=== PATIENT | male | born 1980 | race African-American/Black ===

== ENCOUNTER 2016-12-31 08:07 | Inpatient (IN) | payer MEDICAID, OTHER ==
[2016-12-31] VITALS (19 sets, daily range): BP systolic 148–199; BP diastolic 74–137; PULSE 61–81; RESP 15–20; TEMP 97.4–98.1; O2SAT 92–100
[~2016-12-31] VITALS: Ht 177.8 cm; Wt 125.3 kg
[~2016-12-31 08:07] MED LIST: ATOR80TA41 PO; BAYE2KIT XX; CARV12.5 PO; CLOP75 PO; ECOT81TA2 PO; GLUCOMETER XX; GLUCOMTESTSTRIPS XX; ISOS30 PO; LISI20 PO; METF500 PO
[2016-12-31] MEDS ORDERED: CARV3.125 PO (08:23)
[2016-12-31] MEDS ORDERED: ROSU40 PO (08:23)
[2016-12-31] MEDS ORDERED: LISI-515 PO (08:23)
[2016-12-31] MEDS ORDERED: ASPIRIN 81 MG CHEW TAB PO ONE (08:30)
[2016-12-31] MEDS ORDERED: SODIUM CHLORIDE 0.9% FLUSH 10 ML FLUSH IVF PRN (08:30)
[2016-12-31 08:38] LABS: AUTOMATED NEUTROPHIL # 7.7 TH/MM3 (1.8-7.7); BASOPHIL % 0.4 % (0.0-2.0); EOSINOPHIL # 0.2 TH/MM3 (0-0.4); EOSINOPHIL % 1.6 % (0.0-4.0); HEMATOCRIT 45.1 % (39.0-51.0); HEMO FLAGS DIFF FINAL; LYMPH % 15.4 % (9.0-44.0); LYMPHOCYTE # 1.6 TH/MM3 (1.0-4.8); MEAN CELL VOLUME 78.3 FL (80.0-100.0); MEAN CORPUSCULAR HEMOGLOBIN 27.1 PG (27.0-34.0); MEAN CORPUSCULAR HGB CONC 34.6 % (32.0-36.0); NEUT % 75.6 % (16.0-70.0); PLATELET COUNT 288 TH/MM3 (150-450); RED BLOOD COUNT 5.76 MIL/MM3 (4.50-5.90); RED CELL DISTRIBUTION WIDTH 15.9 % (11.6-17.2); WHITE BLOOD COUNT 10.1 TH/MM3 (4.0-11.0)
--- NOTE | 2016-12-31 08:44 | PD ---
HPI Chief Complaint: Chest Pain Time Seen by Provider: 08:20 Travel History International Travel<30 days: No Contact w/Intl Traveler<30days: No Traveled to known affect area: No History of Present Illness HPI This is a 36-year-old gentleman with history of hypertension, diabetes mellitus , who presents here today with complaints of chest pain on and off 2 weeks. The patient reports left sided chest pain with no radiation. He reports the pain as both sharp and dull. He reports it as a 3-4 out of 10 on the pain scale. There is no shortness of breath. There is no nausea. There is no diaphoresis. The patient denies taking his Plavix as prescribed. He reports taking lisinopril and Cordarone only. He is not taking anything for his diabetes mellitus. COUNTS INCLUDE 234 BEDS AT THE [facility] Past Medical History Medical History: Denies Significant Hx Cancer: No Cardiovascular Problems: Yes (HTN) High Cholesterol: No Chest Pain: Yes Congestive Heart Failure: No Diminished Hearing: No Endocrine: No Genitourinary: No Hypertension: Yes Immune Disorder: No Musculoskeletal: No Neurologic: No Psychiatric: No Reproductive: No Respiratory: No Past Surgical History Surgical History: No Previous Surgery Other Surgery: No Social History Alcohol Use: No Tobacco Use: No Substance Use: No Allergies-Medications (Allergen,Severity, Reaction): Coded Allergies: No Known Allergies (Verified , 01/18/16) Reported Meds & Prescriptions Reported Meds & Active Scripts Active Reported Coreg (Carvedilol) 3.125 Mg Tab 3.125 Mg PO BID Crestor (Rosuvastatin Calcium) 40 Mg Tab 40 Mg PO DAILY Lisinopril 20 Mg Tab 20 Mg PO DAILY Review of Systems Except as stated in HPI: all other systems reviewed are Neg General / Constitutional: No: Fever, Chills Eyes: No: Blurred Vision, Drainage HENT: No: Headaches, Lightheadedness Cardiovascular: Positive: Chest Pain or Discomfort, No: Palpitations Respiratory: No: Cough, Shortness of Breath Gastrointestinal: No: Nausea, Vomiting Musculoskeletal: No: Weakness, Edema, Pain Neurologic: No: Weakness, Dizziness, Syncope, Headache Physical Exam Narrative GENERAL: Well-developed well-nourished male in no acute respiratory distress. SKIN: Focused skin assessment warm/dry. HEAD: Atraumatic. Normocephalic. EYES: No scleral icterus. No injection or drainage. ENT: No nasal bleeding or discharge. Mucous membranes pink and moist. NECK: Trachea midline. No JVD. Supple. CARDIOVASCULAR: Regular rate and rhythm. No murmur appreciated. RESPIRATORY: No accessory muscle use. Clear to auscultation. Breath sounds equal bilaterally. GASTROINTESTINAL: Abdomen soft, non-tender, nondistended. Hepatic and splenic margins not palpable. MUSCULOSKELETAL: No obvious deformities. No clubbing. No cyanosis. No edema. NEUROLOGICAL: Awake and alert. No obvious cranial nerve deficits. Motor grossly within normal limits. Normal speech. PSYCHIATRIC: Appropriate mood and affect; insight and judgment normal. Data Data Last Documented VS Vital Signs Date Time Temp Pulse Resp B/P Pulse Ox O2 Delivery O2 Flow Rate FiO2 12/31/16 10:09 81 148/74 12/31/16 08:22 97 Room Air 12/31/16 08:20 17 12/31/16 08:18 98.0 Orders Electrocardiogram (12/31/16 08:20) Basic Metabolic Panel (Bmp) (12/31/16 08:20) Ckmb (Isoenzyme) Profile (12/31/16 08:20) Complete Blood Count With Diff (12/31/16 08:20) Magnesium (Mg) (12/31/16 08:20) Prothrombin Time / Inr (Pt) (12/31/16 08:20) Act Partial Throm Time (Ptt) (12/31/16 08:20) Troponin I (12/31/16 08:20) Chest, Single Ap (12/31/16 08:20) Ecg Monitoring (12/31/16 08:20) Bilateral Bp Monitoring (12/31/16 08:20) Iv Access Insert/Monitor (12/31/16 08:20) Oximetry (12/31/16 08:20) Oxygen Administration (12/31/16 08:20) Aspirin Chew (Aspirin Chew) (12/31/16 08:30) Sodium Chloride 0.9% Flush (Ns Flush) (12/31/16 08:30) Hydralazine Inj (Apresoline Inj) (12/31/16 08:45) CKMB (12/31/16 08:25) CKMB% (12/31/16 08:25) Admit Order (Ed Use Only) (12/31/16 10:21) Labs Laboratory Tests Test 12/31/16 08:25 White Blood Count 10.1 TH/MM3 Red Blood Count 5.76 MIL/MM3 Hemoglobin 15.6 GM/DL Hematocrit 45.1 % Mean Corpuscular Volume 78.3 FL Mean Corpuscular Hemoglobin 27.1 PG Mean Corpuscular Hemoglobin 34.6 % Concent Red Cell Distribution Width 15.9 % Platelet Count 288 TH/MM3 Mean Platelet Volume 7.8 FL Neutrophils (%) (Auto) 75.6 % Lymphocytes (%) (Auto) 15.4 % Monocytes (%) (Auto) 7.0 % Eosinophils (%) (Auto) 1.6 % Basophils (%) (Auto) 0.4 % Neutrophils # (Auto) 7.7 TH/MM3 Lymphocytes # (Auto) 1.6 TH/MM3 Monocytes # (Auto) 0.7 TH/MM3 Eosinophils # (Auto) 0.2 TH/MM3 Basophils # (Auto) 0.0 TH/MM3 CBC Comment DIFF FINAL Differential Comment Prothrombin Time 13.0 SEC Prothromb Time International 1.2 RATIO Ratio Activated Partial 28.7 SEC Thromboplast Time Sodium Level 139 MEQ/L Potassium Level 4.3 MEQ/L Chloride Level 105 MEQ/L Carbon Dioxide Level 28.2 MEQ/L Anion Gap 6 MEQ/L Blood Urea Nitrogen 13 MG/DL Creatinine 1.41 MG/DL Estimat Glomerular Filtration 69 ML/MIN Rate Random Glucose 90 MG/DL Calcium Level 9.3 MG/DL Magnesium Level 2.2 MG/DL Total Creatine Kinase 188 U/L Creatine Kinase MB 2.0 NG/ML Troponin I 0.45 NG/ML MDM Medical Decision Making Medical Screen Exam Complete: Yes Emergency Medical Condition: Yes Differential Diagnosis ACS versus hypertensive urgency versus muscle skeletal chest pain. Narrative Course 36-year-old male history hypertension, reported diabetes mellitus, presents today with complaints of intermittent chest pain 2 weeks. Patient has LVH on initial EKG. Cardiac enzymes revealed a troponin of 0.45. Shortly thereafter arrival, the patient started experiencing chest pain and became diaphoretic. Repeat EKG showed what appeared to be questionable ST elevation in the anterior lateral leads. Patient was then given morphine and had nitroglycerin started. His pain resolved and repeat EKG showed no evidence of acute changes from the first EKG. He'll be admitted to the cardiac floor. The resident service as been notified of the patient have come down and see the patient. The patient's also discussed with staple side laster, Dr. Sigala. He recommended if the pain is resolved, he can have a formal inpatient cardiology consult. Diagnosis Primary Impression: Chest pain Additional Impressions: HTN (hypertension) Renal insufficiency Diabetes mellitus, type 2 Elevated troponin Admitting Information Admitting Physician Requests: Admit Alon Clifford MD Dec 31, 2016 08:44
[2016-12-31] MEDS ORDERED: hydrALAZINE HCL 20 MG/ML VIAL IV PUSH ONE (08:45)
[2016-12-31 08:47] LABS: APTT (PATIENT) 28.7 SEC (24.3-30.1); INTERNATIONAL NORMALIZED RATIO 1.2 RATIO
[2016-12-31 09:10] LABS: ANION GAP 6 MEQ/L (5-15); BICARBONATE 28.2 MEQ/L (21.0-32.0); BLOOD UREA NITROGEN 13 MG/DL (7-18); CHLORIDE 105 MEQ/L (98-107); GLOMERULAR FILTRATION RATE 69 ML/MIN (>89); MAGNESIUM 2.2 MG/DL (1.5-2.5); POTASSIUM 4.3 MEQ/L (3.5-5.1); SODIUM (NA) 139 MEQ/L (136-145)
--- NOTE | 2016-12-31 09:13 | RADRPT ---
EXAM DATE/TIME: 12/31/2016 08:29 [facility] COMPARISON: CHEST SINGLE AP, January 19, 2016, 0:10. INDICATIONS : Chest pain MEDICAL HISTORY : Hypertension. SURGICAL HISTORY : None. ENCOUNTER: Initial ACUITY: 2 weeks PAIN SCORE: 1/10 LOCATION: Bilateral chest FINDINGS: The lungs are clear. The heart is minimally enlarged. The pulmonary vascularity is normal. There is n o evidence for infiltrate or failure. The portion of the bony skeleton visualized is unremarkable. CONCLUSION: Compensated cardiomegaly otherwise negative . Cardiac silhouette is prominent in thi s 36 year-old suggesting cardiac disease. Rudy Mcguire MD FACR Board Certified Radiologist. This report was verified electronically.
[2016-12-31 09:15] LABS: CREATINE KINASE 188 U/L (39-308)
[2016-12-31] MEDS ORDERED: DOCUSATE SODIUM 50 MG/SENNA 8.6 MG TAB PO PRN (10:30)
[2016-12-31] MEDS ORDERED: NITROGLYCERIN 2% OINT 1 GM PACKET TOPICAL ONE (10:30)
[2016-12-31] MEDS ORDERED: SODIUM CHLORIDE 0.9% FLUSH 10 ML FLUSH IV FLUSH PRN (10:30)
[2016-12-31] MEDS ORDERED: NALOXONE HCL 0.4 MG/ML AMP IV PRN (10:30)
[2016-12-31] MEDS ORDERED: CLOPIDOGREL 75 MG TAB PO SCH (10:30)
[2016-12-31] MEDS ORDERED: ONDANSETRON HCL 4 MG/2 ML VIAL IVP PRN (10:30)
--- NOTE | 2016-12-31 10:38 | HHI.HP ---
[facility] Service Family Medicine Primary Care Physician No Primary Care Physician Admission Diagnosis Diagnoses: International Travel<30 Days: No Contact w/Intl Traveler<30days: No Known Affected Area: No History of Present Illness Mr. Adams is a 36 -year-old male with past medical history of hypertension, diabetes mellitus, and prior NSTEMI presenting with reported 2 weeks of intermittent L sided chest pain. He has had up to 10 episodes of chest pain over the last 2 weeks that are all similar in nature. The pain is at rest and with exertion. He describes it as a "pressure pain" similar to when he had his NSTEMI that radiates to his L shoulder. He endorses diaphoresis, but denies any N/V, headaches, blurry vision, diaphoresis, or "tearing" pain. Currently he states the pain is 10/10 in nature with pressure over the L side of his chest radiating to his left shoulder. He is diaphoretic with nausea and 1 episode of vomiting per staff. He reports that he has been compliant with his Coreg, lisinopril, statin, and aspirin. However he has not been compliant with his metformin, Plavix, and nitroglycerin as needed. Approximately one year ago he was evaluated with cardiac catheterization without stenting for an NSTEMI. Echocardiogram showed EF of 55 to 60% at that time. Otherwise he has no complaints and denies any fevers, shortness of breath, abdominal pain, or calf tenderness. (Zachary Lawrence MD R1) Review of Systems Constitutional: COMPLAINS OF: Chills, DENIES: Fever Eyes: DENIES: Blurred vision Ears, nose, mouth, throat: DENIES: Throat pain, Running Nose Respiratory: COMPLAINS OF: Shortness of breath, DENIES: Cough Cardiovascular: COMPLAINS OF: Chest pain, Palpitations, DENIES: Syncope, Dyspnea on Exertion, Lower Extremity Edema Gastrointestinal: DENIES: Abdominal pain, Diarrhea, Nausea, Vomiting Genitourinary: DENIES: Dysuria Musculoskeletal: DENIES: Joint pain Integumentary: DENIES: Rash Hematologic/lymphatic: DENIES: Lymphadenopathy Neurologic: DENIES: Headache Psychiatric: DENIES: Mood changes (Zachary Lawrence MD R1) Past Family Social History Past Medical History HTN Prior NSTEMI s/p Cath 2015 DM Renal Insufficiency HPLD Past Surgical History None reported (Zachary Lawrence MD R1) Allergies: Coded Allergies: No Known Allergies (Verified , 01/18/16) Family History Mother - from [place] at 46 yr Father - HPLD, still living Sister - healthy Social History [facility] [place] and works at [employer]. Lives with significant other in apartment. Smoke - Denies tobacco history Alcohol - Denies alcohol history Illicit - Denies illicit drug use (Zachary Lawrence MD R1) Physical Exam Vital Signs Vital Signs Date Time Temp Pulse Resp B/P Pulse Ox O2 Delivery O2 Flow Rate FiO2 12/31/16 10:09 81 148/74 12/31/16 09:11 69 173/94 186/85 12/31/16 09:08 65 184/104 12/31/16 08:22 97 Room Air 12/31/16 08:22 97 Room Air 12/31/16 08:20 70 17 96 Room Air 12/31/16 08:18 98.0 70 15 181/125 94 12/31/16 08:11 189/124 12/31/16 08:11 98.0 67 15 199/137 99 Physical Exam GENERAL: Obese 36-year-old male sitting on the side of the bed, diaphoretic, clutching his chest and pain. SKIN: Cool and diaphoretic. No rash or ecchymosis. HEENT: Atraumatic, normocephalic with EOMI. PERRLA. No scleral icterus. Oropharynx clear with no erythema or exudate. No rhinorrhea. No LAD, JVD, or carotid bruit appreciated. CARDIOVASCULAR: Tachycardic with regular rhythm. No MGR appreciated. RESPIRATORY: Clear to auscultation bilaterally. No CRW. No increased work of breathing. GASTROINTESTINAL: Abdomen soft, non-tender, nondistended with positive bowel sounds. No masses or hepatosplenomegaly appreciated. MUSCULOSKELETAL: Extremities without cyanosis or edema. 2+ pulses in all 4 extremities. No calf tenderness. NEUROLOGICAL: Awake alert and oriented 3. Motor and sensory grossly intact. Normal speech and judgment. Laboratory Laboratory Tests Test 12/31/16 08:25 White Blood Count 10.1 Red Blood Count 5.76 Hemoglobin 15.6 Hematocrit 45.1 Mean Corpuscular Volume 78.3 Mean Corpuscular Hemoglobin 27.1 Mean Corpuscular Hemoglobin 34.6 Concent Red Cell Distribution Width 15.9 Platelet Count 288 Mean Platelet Volume 7.8 Neutrophils (%) (Auto) 75.6 Lymphocytes (%) (Auto) 15.4 Monocytes (%) (Auto) 7.0 Eosinophils (%) (Auto) 1.6 Basophils (%) (Auto) 0.4 Neutrophils # (Auto) 7.7 Lymphocytes # (Auto) 1.6 Monocytes # (Auto) 0.7 Eosinophils # (Auto) 0.2 Basophils # (Auto) 0.0 CBC Comment DIFF FINAL Differential Comment Prothrombin Time 13.0 Prothromb Time International 1.2 Ratio Activated Partial 28.7 Thromboplast Time Sodium Level 139 Potassium Level 4.3 Chloride Level 105 Carbon Dioxide Level 28.2 Anion Gap 6 Blood Urea Nitrogen 13 Creatinine 1.41 Estimat Glomerular Filtration 69 Rate Random Glucose 90 Calcium Level 9.3 Magnesium Level 2.2 Total Creatine Kinase 188 Creatine Kinase MB 2.0 Troponin I 0.45 (Zachary Lawrence MD R1) Result Diagram: 12/31/16 0825 12/31/16 0825 Imaging Last 72 hours Impressions Chest X-Ray 12/31/16 0820 Signed Impressions: Service Date/Time: Saturday, December 31, 2016 08:29 - CONCLUSION: Compensated cardiomegaly otherwise negative . Cardiac silhouette is prominent in this 36 year-old suggesting cardiac disease. Rudy Mcguire MD FACR (Zachary Lawrence MD R1) Assessment and Plan Assessment and Plan Mr. Adams is a 36 -year-old male with past medical history of hypertension, diabetes mellitus, and prior NSTEMI presenting with reported 2 weeks of intermittent L sided chest pain likely secondary to therapy noncompliance. He will be admitted for further cardiac work up. Code Status FULL Discussed Condition With Dr. Clifford, ER physician Dr. Garduno (Zachary Lawrence MD R1) Attending Attestation Patient seen and examined. Case reviewed and discussed with the resident team. Agree with plan of care as discussed with me and documented in the resident note. (Bee Hernandez MD) Problem List: (1) Chest pain Status: Acute Plan: Patient with reported intermittent chest pain over the last 2 weeks with history of instability. Upon my evaluation patient had clinical change from initial evaluation by the ER physician as his pain had increased to 10/10 with N /V and diaphoresis. Repeat EKG was obtained that showed possible interval lateral lead changes. DDx includes ACS, GERD, PE, pneumonia, panic attack, myocarditis, costochondritis. CAD risk factors include obesity, FH of [place], HTN, HLD, DM and prior NSTEMI. -Previous ECHO on 01/20/16 showed an EF of 55-60% with mild hypokinesis of the distal inferior myocardium. Increased wall thickness of the left ventricle with moderate LVH. Mild pulmonic valve regurgitation. Systolic pressure of the pulmonary arteries 47 mmHg. -Previous EKG on 01/19/16 showed sinus tachycardia with inferior infarct of undetermined age, left ventricular hypertrophy, and lateral T-wave changes. -Repeat ECHO: Pending -Initial EKG: No acute change from prior EKG in 2016. -Repeat EKG on evaluation: Possible lateral lead changes concerning for ischemia. Cardiology notified per ED staff. -CXR: Compensated cardiomegaly otherwise negative. Cardiac silhouette prominent in this 36-year-old suggestion cardiac disease. -CBC: WNL -BMP: Creatinine 1.41 -LFT: Pending -Initial Trop 0.45. Trend Nick and EKGs x 2. -BNP: Pending -TSH: Pending -UDS:Pending -Telemetry -Pulse ox with nasal cannula PRN -STAT Cardiology consult placed, appreciate recommendations. Dr. Clifford in contact with Dr. Sigala at the time of my evaluation and is aware of the patient. Dr. Sigala requested repeat EKG and to be contacted with those results by Dr. Clifford. Medications: -ASA, Morphine 4mg, and Nitroglycerin give in ER x1. -Morphine 3mg Q2 hrs PRN chest pain only. -Continue Coreg 3.125mg BID -Continue Lisinopril 20mg QD -Continue Lipitor 80mg QHS -Supplemental O2. -Daily Plavix -Daily aspirin (2) HTN (hypertension) Status: Acute Plan: Patient with history of chronic HTN presenting with pressure of 199/137. Patient is being noncompliant on home medications. Medications: Received hydralazine 20 mg in ER 1 Continue home lisinopril 20 mg daily Vasotec 1.25 mg IV every 6 hours when necessary for a pressure greater than 170 /100 (3) Diabetes mellitus, type 2 Status: Acute Plan: Patient with reported diabetes mellitus. Currently not compliant with metformin. Sliding scale insulin per protocol Hold home metformin (4) Renal insufficiency Status: Chronic Plan: Patient with history of renal insufficiency. Per chart review baseline approximately 1.41. Patient has had noncompliance on medications. BMP: Creatinine 1.41 Continue to monitor (5) Hyperlipidemia Status: Chronic Plan: Patient with history of hyperlipidemia. Lipitor 80 mg daily at bedtime Lipid profile with morning labs (6) Nutrition, metabolism, and development symptoms Status: Acute Plan: Diet: Nothing by mouth for possible future procedure Fluids: Not dehydrated, currently tolerating by mouth fluids Electrolytes: WNL, continue to monitor Prophylaxis: Zofran prn for [place], Joan-Colace for constipation (7) No contraindication to deep vein thrombosis (DVT) prophylaxis Status: Acute Plan: Heparin 5000 units every 8 hours, depending on clinical course we will anticipate heparin drip for possible catheterization LORETTA/SCDs (Zachary Lawrence MD R1) Zachary Lawrence MD R1 Dec 31, 2016 10:38 Bee Hernandez MD Dec 31, 2016 14:38
[2016-12-31] MEDS ORDERED: HEPARIN SODIUM - SQ 10,000 UNITS/ML VIAL SQ SCH (11:00)
[2016-12-31] MEDS ORDERED: MORPHINE SULFATE 4 MG/ML INJ IV PUSH ONE (11:15)
[2016-12-31] MEDS ORDERED: DEXTROSE 50% IN WATER 50 ML VIAL(D50) IV PRN (11:45)
[2016-12-31] MEDS ORDERED: MORPHINE SULFATE 4 MG/ML INJ IV PUSH PRN (11:45)
[2016-12-31] MEDS ORDERED: GLUCAGON 1 MG/ML VIAL OTHER PRN (11:45)
--- NOTE | 2016-12-31 12:54 | ECHRPT ---
Indication: Chest pain, unspecified CONCLUSIONS Mildly dilated left ventricle. Mild concentric left ventricular hypertrophy. The left ventricular systolic function is severely reduced with an estimated ejection fraction in th e range of 20-25%. There is global left ventricular dysfunction. The left atrial size is mildly dilated. Trace mitral valve regurgitation. The aortic valve is not well visualized. The pulmonary valve is not well visualized. BP: 181 / 125 HR: 70 Rhythm: Sinus MEASUREMENTS (Male / Female) Normal Values Technical Quality:Good 2D ECHO LV Diastolic Diameter PLAX 6.3 cm 4.2 - 5.9 / 3.9 - 5.3 cm LV Systolic Diameter PLAX 5.6 cm IVS Diastolic Thickness 1.4 cm 0.6 - 1.0 / 0.6 - 0.9 cm LVPW Diastolic Thickness 1.1 cm 0.6 - 1.0 / 0.6 - 0.9 cm LV Relative Wall Thickness 0.4 RV Internal Dim ED PLAX 2.0 cm LA Systolic Diameter LX 4.0 cm 3.0 - 4.0 / 2.7 - 3.8 cm M-MODE IVS Diastolic Thickness MM 2.0 cm 0.6 - 1.0 / 0.6 - 0.9 cm Aortic Root Diameter MM 3.7 cm DOPPLER AV Peak Velocity 130.0 cm/s AV Peak Gradient 6.8 mmHg LVOT Peak Velocity 84.5 cm/s LVOT Peak Gradient 2.9 mmHg Mitral E Point Velocity 98.2 cm/s Mitral A Point Velocity 67.5 cm/s Mitral E to A Ratio 1.5 TR Peak Velocity 319.0 cm/s TR Peak Gradient 40.7 mmHg FINDINGS LEFT VENTRICLE Mildly dilated left ventricle. Mild concentric left ventricular hypertrophy. The left ventricular systolic function is severely reduced with an estimated ejection fraction in th e range of 20-25%. There is global left ventricular dysfunction. RIGHT VENTRICLE Normal right ventricular size and systolic function. LEFT ATRIUM The left atrial size is mildly dilated. RIGHT ATRIUM The right atrial size is normal. ATRIAL SEPTUM Normal atrial septal thickness without atrial level shunting by limited color doppler interrogation. AORTA The aortic root and proximal ascending aorta are normal in size on limited imaging. MITRAL VALVE Trace mitral valve regurgitation. AORTIC VALVE The aortic valve is not well visualized. No aortic valve stenosis or regurgitation. TRICUSPID VALVE Structurally normal tricuspid valve. No tricuspid valve stenosis or regurgitation. PULMONARY VALVE The pulmonary valve is not well visualized. VESSELS The inferior vena cava is normal in size. PERICARDIUM No pericardial effusion. Gordon Marmolejo MD (Electronically Signed) Final Date:31 December 2016 12:54
[2016-12-31] MEDS ORDERED: MORPHINE SULFATE 4 MG/ML INJ IV PRN (14:00)
[2016-12-31] MEDS ORDERED: HEPARIN-D5W INJ 250 ML IV SCH (14:00)
[2016-12-31 14:31] LABS: AMPHETAMINE, URINE NEG (NEG); BARBITURATES, URINE NEG (NEG); COCAINE, URINE NEG (NEG)
--- NOTE | 2016-12-31 14:31 | HHI.FPPN ---
Subjective Remarks Patient seen, examined and discussed with the medicine team. This is a 36-year-old male with cardiac history of an STEMI in 2016 he did have a catheter that had no stents. He now reports that he's had chest pain over the last 2 weeks intermittently. He continued to have this mostly at night and in the morning and this morning he again had the pain and decided to present to the emergency department. He recently started taking his Coreg again, as well as his lisinopril, aspirin and statin. He said he only took his Plavix maybe twice over the past many months because he said it made him feel weird or dizzy. He has not been taking his metformin. He apparently does not like to take pills. While in the emergency department this morning, he initially had chest pain 5 out of 10 but developed an episode of chest pain which was 10 out of 10 relieved with morphine and nitroglycerin. When I see him this afternoon, he says his pain now is 1-2 out of 10. He reports that this morning he took an [id number] diet pill because he thinks he needs to reduce his weight. Please see history and physical examination for this admission for additional past, family, social history and review of systems. Objective Vitals Vital Signs Date Time Temp Pulse Resp B/P Pulse Ox O2 Delivery O2 Flow Rate FiO2 12/31/16 14:00 71 12/31/16 13:00 63 12/31/16 12:30 68 12/31/16 12:30 97.7 62 20 149/89 99 12/31/16 11:53 98 21 12/31/16 11:37 71 18 165/102 100 Room Air 12/31/16 10:38 74 12/31/16 10:09 81 148/74 12/31/16 09:11 69 173/94 186/85 12/31/16 09:08 65 184/104 12/31/16 08:22 97 Room Air 12/31/16 08:22 97 Room Air 12/31/16 08:20 70 17 96 Room Air 12/31/16 08:18 98.0 70 15 181/125 94 12/31/16 08:11 189/124 12/31/16 08:11 98.0 67 15 199/137 99 Result Diagram: 12/31/1625 12/31/1625 Other Results Laboratory Tests Test 12/31/16 08:25 Mean Corpuscular Volume 78.3 FL Neutrophils (%) (Auto) 75.6 % Prothrombin Time 13.0 SEC Creatinine 1.41 MG/DL Estimat Glomerular Filtration 69 ML/MIN Rate Troponin I 0.45 NG/ML Imaging Last Impressions Chest X-Ray 12/31/16 0820 Signed Impressions: Service Date/Time: Saturday, December 31, 2016 08:29 - CONCLUSION: Compensated cardiomegaly otherwise negative . Cardiac silhouette is prominent in this 36 year-old suggesting cardiac disease. Rudy Mcguire MD FACR Objective Remarks O. CONSTITUTIONAL/GEN: normally nourished, in NAD. EYES: conjunctiva normal, PERRLA, EOMI. ENT: Mouth and pharynx normal. NECK: thyroid midline, carotids symmetrical. LUNGS: clear A-P, respiratory effort is normal. CARDIOVASCULAR: RR without murmur or gallop. No significant edema. GI/ABD: soft without masses, without organomegaly. NEURO: No focal deficits. SKIN: color normal, no rashes noted. HEME/LYMPH: no bruising, petechia or significant adenopathy MUSC: back is normal in appearance. Extremities are normal in appearance. PSYCH/MENTAL STATUS: Alert and oriented x 3. A/P Assessment and Plan Mr. Adams is a 36 -year-old male with past medical history of hypertension, diabetes mellitus, and prior NSTEMI presenting with reported 2 weeks of intermittent L sided chest pain likely secondary to therapy noncompliance. He will be admitted for further cardiac work up. Attending Attestation Patient seen and examined. Case reviewed and discussed with the resident team. Agree with plan of care as discussed with me and documented in the resident note. Problem List: (1) Chest pain Status: Acute Plan: Patient with reported intermittent chest pain over the last 2 weeks with history of instability. Upon my evaluation patient had clinical change from initial evaluation by the ER physician as his pain had increased to 10/10 with N /V and diaphoresis. Repeat EKG was obtained that showed possible interval lateral lead changes. DDx includes ACS, GERD, PE, pneumonia, panic attack, myocarditis, costochondritis. CAD risk factors include obesity, FH of [place], HTN, HLD, DM and prior NSTEMI. -Previous ECHO on 01/20/16 showed an EF of 55-60% with mild hypokinesis of the distal inferior myocardium. Increased wall thickness of the left ventricle with moderate LVH. Mild pulmonic valve regurgitation. Systolic pressure of the pulmonary arteries 47 mmHg. -Previous EKG on 01/19/16 showed sinus tachycardia with inferior infarct of undetermined age, left ventricular hypertrophy, and lateral T-wave changes. -Repeat ECHO: Pending -Initial EKG: No acute change from prior EKG in 2016. -Repeat EKG on evaluation: Possible lateral lead changes concerning for ischemia. Cardiology notified per ED staff. -CXR: Compensated cardiomegaly otherwise negative. Cardiac silhouette prominent in this 36-year-old suggestion cardiac disease. -CBC: WNL -BMP: Creatinine 1.41 -LFT: Pending -Initial Trop 0.45. Trend Nick and EKGs x 2. -BNP: Pending -TSH: Pending -UDS:Pending -Telemetry -Pulse ox with nasal cannula PRN -STAT Cardiology consult placed, appreciate recommendations. Dr. Clifford in contact with Dr. Sigala at the time of my evaluation and is aware of the patient. Dr. Sigala requested repeat EKG and to be contacted with those results by Dr. Clifford. Medications: -ASA, Morphine 4mg, and Nitroglycerin give in ER x1. -Morphine 3mg Q2 hrs PRN chest pain only. -Continue Coreg 3.125mg BID -Continue Lisinopril 20mg QD -Continue Lipitor 80mg QHS -Supplemental O2. -Daily Plavix -Daily aspirin (2) HTN (hypertension) Status: Acute Plan: Patient with history of chronic HTN presenting with pressure of 199/137. Patient is being noncompliant on home medications. Medications: Received hydralazine 20 mg in ER 1 Continue home lisinopril 20 mg daily Vasotec 1.25 mg IV every 6 hours when necessary for a pressure greater than 170 /100 (3) Diabetes mellitus, type 2 Status: Acute Plan: Patient with reported diabetes mellitus. Currently not compliant with metformin. Sliding scale insulin per protocol Hold home metformin (4) Renal insufficiency Status: Chronic Plan: Patient with history of renal insufficiency. Per chart review baseline approximately 1.41. Patient has had noncompliance on medications. BMP: Creatinine 1.41 Continue to monitor (5) Hyperlipidemia Status: Chronic Plan: Patient with history of hyperlipidemia. Lipitor 80 mg daily at bedtime Lipid profile with morning labs (6) Nutrition, metabolism, and development symptoms Status: Acute Plan: Diet: Nothing by mouth for possible future procedure Fluids: Not dehydrated, currently tolerating by mouth fluids Electrolytes: WNL, continue to monitor Prophylaxis: Zofran prn for NV, Joan-Colace for constipation (7) No contraindication to deep vein thrombosis (DVT) prophylaxis Status: Acute Plan: Heparin 5000 units every 8 hours, depending on clinical course we will anticipate heparin drip for possible catheterization LORETTA/SCDs Bee Hernandez MD Dec 31, 2016 14:31
[2016-12-31] MEDS ORDERED: IOHEXOL 350 MG/ML 100 ML BTL (for Cath Lab) OTHER ONE (15:48)
[2016-12-31] MEDS ORDERED: VERAPAMIL HCL 5 MG/2 ML VIAL ONE (15:54)
[2016-12-31] MEDS: HEPARIN-NS/PF INJ 500 ML ONE ×2 (15:54→16:05)
[2016-12-31] MEDS: HEPARIN SODIUM - IV 10,000 UNITS/10 ML VIAL ONE (15:55)
[2016-12-31] MEDS ORDERED: NITROGLYCERIN INJ 5 ML ONE (15:55)
[2016-12-31] MEDS: MIDAZOLAM HCL 2 MG/2 ML VIAL ONE ×4 (15:55→16:21)
[2016-12-31] MEDS: INSULIN ASPART SUPPLEMENTAL SCALE SQ SCH ×2 (16:00→21:00)
[2016-12-31] MEDS: LIDOCAINE HCL 1% PF 30 ML VIAL ONE (16:02)
--- NOTE | 2016-12-31 16:22 | MB ---
cc: VASHTI SOTO DATE OF CONSULTATION: 12/31/2016. REASON FOR CONSULTATION: Chest pain. HISTORY OF PRESENT ILLNESS: 36-year-old male with known past medical history of coronary artery disease with S-T elevation CA last year that was not intervened, hyperlipidemia, obesity , strong family history of premature CAD who presented to the emergency department with complaints of left-sided chest discomfort for the last two weeks. He reports the pain to be a pressure on exertion that radiates to the left shoulder associated with diaphoresis, however denies nausea, vomiting, headaches, diarrhea, fevers, chills, bleeding. The patient is not compliant with medications or medical visits. In the emergency department, his cardiac enzymes were elevated at 0.45. The first EKG unchanged from the previous and the second EKG there were dynamic S-T changes that resolved and the third EKG showed back to baseline. The patient was admitted to the [facility] for further management and evaluation. Echocardiogram done last year shows an ejection fraction of 60%. REVIEW OF SYSTEMS: Negative except for what is mentioned in history of present illness. PAST MEDICAL HISTORY: 1. Hypertension. 2. Coronary artery disease status post STEMI last year. 3. Diabetes. 4. Renal insufficiency. 5. Hyperlipidemia. 6. Obesity. PAST SURGICAL HISTORY: None. ALLERGIES: NO KNOWN DRUG ALLERGIES. FAMILY HISTORY: Mother had a myocardial infarction at 46. Father hyperlipidemia. SOCIAL HISTORY: Denies smoking, alcohol or illicit drug use. 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 HOME MEDICATIONS: 1. Coreg 3.125 milligrams p.o. twice a day. 2. Lisinopril 20 milligrams p.o. daily. 3. Crestor 40 milligrams p.o. daily. PHYSICAL EXAMINATION: VITAL SIGNS: Temperature 97, respiratory rate 20, heart rate 62, blood pressure 149/89, 02 saturation 99% on room air. GENERAL: He is awake, alert and oriented times three in no acute distress. HEAD, EYES, EARS, NOSE, THROAT/NECK: The patient has no jugular venous distention. No carotid bruits. HEART: Regular rate and rhythm. There are no murmurs, rubs or gallops. LUNGS: Clear to auscultation bilaterally. No wheezing. No rales. No rhonchi. ABDOMEN: The abdomen is soft, nontender and nondistended with positive bowel sounds. Obese. EXTREMITIES: There is no cyanosis or edema. Bounding pulses throughout. LABS: CBC: Hemoglobin 15, hematocrit of 45, platelet count 288,000. INR 1.2. Chemistries: Sodium 139, potassium 4.3, BUN 13, creatinine 1.41 which is his baseline. Troponin 0.45. BNP 97. EKGS: EKG normal sinus rhythm with inferior Q-waves, ___ and lateral T-wave inversions are old. Left ventricular hypertrophy. ASSESSMENT AND PLAN: 36-year-old male with known coronary artery disease presenting with NSTEMI ( PAPA 3, Killip Class I). He remains hemodynamically stable and chest pain-free with mildly elevated troponin. At this time, I agree with admission to to the coronary intensive care unit for optimization of medical therapy. Start heparin drip, aspirin, beta-blockers, ABIEL inhibitors, statins. Keep NPO for left heart cath / percutaneous coronary intervention. 2-D echocardiogram pending. The risks and benefits of left heart catheterization / percutaneous coronary intervention including but not limited to bleeding, infection, neurovascular trauma, acute kidney injury, emergent bypass surgery, stroke and have been explained to the patient. The patient understands the risks and he is willing to proceed. RECOMMENDATIONS 1. 2-D echocardiogram. 2. Cardiac enzymes x3. 3. Start heparin drip. 4. Start aspirin. 5. Continue beta blockers and ABIEL inhibitors and statins. 6. Keep n.p.o. for left heart catheterization today 7. Continue telemetry monitoring. Thank you for the opportunity to take part in the care of this patient. Further management to be determined. MD IRVING Shrestha/JCC /2:17 PM /4:16 PM CAN
--- NOTE | 2016-12-31 16:52 | CATHPROC ---
T1 Visions HIS Report Study Information Study Number Scheduled Start Study Start [id number] 12/31/2016 Dec 31 2016 3:53PM Referring Institution Admit Source Facility Department 1 Emergency department [facility] - [employer] Driver Physician and Clinical Staff Initial Amor Cheek Slitter Scorer Cut Off Operator Mickey Perez,JORGE A Recorder Dennis Bwoen,RT(R) Scrub Nikita, Leslie,CHAIR UPHOLSTERER TECH2 Procedures Performed Procedure Location (Site) Vessel Name Coronary Angiograms LCA Left Coronary Coronary Angiograms RCA Right Coronary LV Gram-hand inj. LV LV Ventricle Wire insertion Radial (right) Radial Art. Equipment Time Biology Tutor Description Size Mfg Part Number Used/Scraped COPILOT VALVE, BLEEDBACK [id number] 16:30 [employer] Used CONTROL *[id number] TRANSDUCER, TRUWAVE [id number] 16:03 ROMERO [employer] * Used W/STOCKCOCK *[id number] 16:36 CARDIVA MEDICAL VASCADE, FR5 CLOSURE SYSTEM FR 5 Used *[id number]- INTRODUCER SET, 16:13 [employer]. FR 5 SC-NT-U-SST Used MICROPUNCTURE, STIFFENED *[id number] [id number] *[id number] [id number] *[id number] [id number] *[id number] 16:03 KVK TEAM [employer]ES PACK, CCL CUSTOM * Used *[id number] 16:03 [employer] SUPPORT, ARTERIAL ADULT [id number] Used BAND, RADIAL COMPRESSION TR [id number] 16:41 [employer] MEDICAL 29CM Used LARGE 29 *[id number] 16:03 IES WIRE, 3MMJ .035 180CM 180CM Used *[id number] 16:03 NAMIC MANIFOLD, 4 PORT * Used *[id number] 16:03 NYCOMED OMNIPAQUE, 350 MG, 150ML 150ML [id number] Used [id number] 16:03 LEIGH MEDICAL BLANKET,WARM AIR CCL * Used *[id number] 16:13 TERUMO MEDICAL SHEATH, FR5 TERUMO (10CM) FR 5 [id number] Used SHEATH, FR6 TRANSRADIAL 16:03 TERUMO MEDICAL FR 6 [id number] Used SLENDER 10CM WIRE, RUNTHROUGH NS FLOPPY [id number] 16:31 TERUMO MEDICAL 180CM Used .014 180CM *[id number] Equipment Model, Serial, Lot Number and Expiration Data Description Model Number Serial Number Lot Number Expiration Date INTRODUCER SET, [id number] 10-27-2019 MICROPUNCTURE, STIFFENED History: Allergies Allergy Reaction No Known Allergies History: Risk Factors Family History of Hypertension Dyslipidemia Previous OR Previous Heart Failure Premature CAD Yes No No No No Prior Valve Prior PCI Prior CABG Surgery No No No Cerebrovascular Peripheral Artery Chronic Lung On Dialysis Diabetes Diabetes Therapy Disease Disease Disease No No No No Yes None History: Stress Tests Stress or Imaging Studies Performed No History: Other Current Smoker No Labs Hgb (g/dl) Hct (%) WBC (l/cumm) Platelets (thousands) 12.00-18.00 37.00-55.00 4.80-10.80 140.00-450.00 15.6 45.1 10.1 288 Glucose (mg/dl) BUN (mg/dl) Creatinine (mg/dl) BUN:Creatinine (1:x) 60.00-110.00 8.00-20.00 0.10-9.00 10.00-20.00 90 13 1.4 9.3 Na (meq/l) K (meq/l) 138.00-146.00 3.80-5.10 139 4.3 Troponin I (ng/ml) CPK-MB (ng/ML) 0.40-2.30 0.00-7.00 0.45 Not Drawn Medication Medication Total Dose (Bolus/Oral) Medication Total Dosage/Unit 1% XYLOCAINE 25 mL FENTANYL 100 mcg VERSED 4 mg Medications (Bolus/Oral) Medication Time Given Dosage/Unit Administered By Reason VERSED 12/31/2016 4:05:32 PM 2 mg Mickey Perez Patient arrived on 2 mg VERSED given by Mickey Perez RN in Right Antecubital via Peripheral IV. FENTANYL 12/31/2016 4:05:49 PM 50 mcg Mickey Perez Patient arrived on 50 mcg FENTANYL given by Mickey Perez RN in Right Antecubital via Peripheral IV . 1% XYLOCAINE 12/31/2016 4:07:07 PM 5 mL Amor Pimentel Patient arrived on 5 mL 1% XYLOCAINE given by Amor Pimentel in Right Radial via Subcutaneous. 1% XYLOCAINE 12/31/2016 4:13:39 PM 20 mL Amor Pimentel 20 mL 1% XYLOCAINE given in lab by Amor Pimentel in Right Groin via Subcutaneous. VERSED 12/31/2016 4:21:09 PM 2 mg Mickey Perez 2 mg VERSED given in lab by Mickey Perez RN in Right Antecubital via Peripheral IV. FENTANYL 12/31/2016 4:21:19 PM 25 mcg Mickey Perez 25 mcg FENTANYL given in lab by Mickey Perez RN in Right Antecubital via Peripheral IV. FENTANYL 12/31/2016 4:37:19 PM 25 mcg Mickey Perez 25 mcg FENTANYL given in lab by Mickey Perez RN via Peripheral IV. Medication (Drip) Medication Time Given Dosage/Unit Concentration/Unit Diluent (ml) Solution IV Solutions 12/31/2016 3:57:23 PM 0 mL (IV) 500 NaCl .9 Patient arrived on IV Solutions given by Amor Pimentel in Right Antecubital via Peripheral IV. Pu mp/Drip Flow = 20 ml/hr using NaCl .9. Reason: As per physicians verbal order. Final Case Assessment Cardiovascular HR Rhythm NIBP Chest Pain 78 sr 165/104 0 Edema Present Skin color Skin None Normal Warm Dry Circulatory - Right Pulses Dorsalis Pedis Femoral Radial 2 2 2 Scale (0,1,2,3,4,d) Scale (0,1,2,3,4,d) Neurological State Oriented to time-place- Alert Moves all extremities person Respiration - General Respiration Rate SpO2 (%) O2 (lpm) (B/min) 18 95 0 Chronological Log Time Study Chronological Log 15:52:53 Patient arrived via Bed. Positive Allens test performed by Dr. Sigala. 15:52:55 Patient Name, D.O.B, / Armband Verified By R.N. 15:52:56 Consent signed by the physician and the patient and verified by the [employer] staff. 15:52:57 Pre-op and post- op instructions given; patient acknowledges understanding of instructions. 15:56:11 Verbal Stimulation=2 Physical Stimulation=2 Airway=2 Respiration=2 TOTAL=8. (0=absent, 1=li mited, 2=present) 15:56:24 Presedation assessment performed by [employer] Driver RN. 15:56:26 Patient has been NPO for More than 6Hrs. 15:56:28 Skin Breakdown-none present per patient. 15:57:06 A # 20 IV was noted in the Antecubital (right). Grade = 0 Patient arrived on IV Solutions given by Amor Pimentel in Right Antecubital via Peripheral IV. Pump/Drip Flow = 20 15:57:23 ml/hr using NaCl .9. Reason: As per physicians verbal order. 15:57:42 History and physical on the chart or being dictated. Vitals capture started with the following parameters, Patient=Adult, Interval=15 min, Initial P xccrhfx=290 mmHg, 15:57:46 Deflation Rate=5 mmHg 15:58:04 Reference ECG taken 15:59:51 HR=75 bpm, OFPU=570/91 mmhg, SpO2=98.0 %, Resp=16 B/min, Knowles=2 16:02:59 Right groin prepped and right radial with 2% chlorhexidine, and with a 3 min. waiting time. 16:03:36 HR=73 bpm, GHOC=190/98 mmhg, SpO2=99.0 %, Resp=10 B/min, Knowles=2 Time Out. Correct patient, correct procedure,correct physician, ,power injector not loaded with contrast with surgical 16:04:44 team present. Time Out Concurred by MD, individual staff and REED WORKER in procedure. Not loaded at t his time. 16:05:28 Presedation re-assessment performed by [employer] Driver RN. 16:05:32 Patient arrived on 2 mg VERSED given by Mickey Perez, JORGE A in Right Antecubital via Periphe ral IV. 16:05:49 Patient arrived on 50 mcg FENTANYL given by Mickey Perez RN in Right Antecubital via Per ipheral IV. 16:05:56 Pressure channel 1 zeroed. 16:06:11 Case Start 16:07:01 Verbal Stimulation=2 Physical Stimulation=2 Airway=2 Respiration=2 TOTAL=8. (0=absent, 1=li mited, 2=present) 16:07:07 Patient arrived on 5 mL 1% XYLOCAINE given by Sigala-Jackson, Amor in Right Radial via Subcuta neous. 16:07:19 Access site was Radial Artery. right A SHEATH, FR6 TRANSRADIAL SLENDER 10CM FR 6 was advanced into the Radial (right) using the Perc utaneous 16:07:31 technique. 16:08:31 HR=79 bpm, LSRD=620/96 mmhg, SpO2=95.0 %, Resp=5 B/min, Knowles=2 A JR 4.0 INFINITI CATHETER FR 5 was advanced over a wire. OMNIPAQUE, 350 MG, 150ML 150ML was us ed for 16:09:48 injections. Recorded Pressure: Ao, HR=77, Condition=Condition 1 16:11:36 (Aorta) Ao 140/93/116 16:11:49 Wire removed 16:11:51 A WIRE, 3MMJ .035 180CM 180CM was inserted via Radial (right). 16:12:23 Wire removed 16:12:28 Catheter was removed 16:13:00 Radial approach aborted. Attempting right groin. 16:13:34 HR=73 bpm, MYAV=391/92 mmhg, SpO2=90.0 %, Resp=16 B/min, Knowles=2 16:13:39 20 mL 1% XYLOCAINE given in lab by Amor Pimentel in Right Groin via Subcutaneous. 16:15:40 Access site was Right Femoral Artery. 16:15:46 A SHEATH, FR5 TERUMO (10CM) FR 5 was advanced into the Fem Art (right) using the Percutaneo us technique. 16:16:24 An injection in the Fem Art (right) was made through the SHEATH, FR5 TERUMO (10CM) FR 5. A JR 4.0 INFINITI CATHETER FR 5 was advanced over a wire. OMNIPAQUE, 350 MG, 150ML 150ML was us ed for 16:16:43 injections. Recorded Pressure: LV, HR=88, Condition=Condition 1 16:18:39 (Left Ventricle) LV 159/9/24 16:18:56 The LV was manually injected with 10 cc's and visualized. OMNIPAQUE, 350 MG, 150ML 150ML us ed. Recorded Pressure: LV, Ao, HR=90, Condition=Condition 1 16:19:05 (Left Ventricle) LV 149/42/19, (Aorta) Ao 168/105/135 16:19:33 HR=73 bpm, UXHY=431/89 mmhg, SpO2=94.0 %, Resp=20 B/min, Knowles=2 16:21:09 2 mg VERSED given in lab by Mickey Perez, RN in Right Antecubital via Peripheral IV. 16:21:19 25 mcg FENTANYL given in lab by Mickey Perez, RN in Right Antecubital via Peripheral IV. 16:23:21 Catheter was removed 16:23:30 HR=73 bpm, JQTB=395/102 mmhg, SpO2=95.0 %, Resp=14 B/min, Knowles=2 A AR MOD INFINITI CATHETER FR 5 was advanced over a wire. OMNIPAQUE, 350 MG, 150ML 150ML was us ed for 16:23:42 injections. 16:25:00 The RCA was injected and visualized at various angles. OMNIPAQUE, 350 MG, 150ML 150ML used . 16:27:12 Catheter was removed A JL 3.5 INFINITI CATHETER FR 5 was advanced over a wire. OMNIPAQUE, 350 MG, 150ML 150ML was us ed for 16:27:14 injections. 16:28:19 Catheter was removed A JL 5.0 INFINITI CATHETER FR 5 was advanced over a wire. OMNIPAQUE, 350 MG, 150ML 150ML was us ed for 16:28:28 injections. 16:28:35 HR=88 bpm, GDWT=006/101 mmhg, SpO2=91.0 %, Resp=13 B/min, Knowles=2 16:28:46 The LCA was injected and visualized at various angles. OMNIPAQUE, 350 MG, 150ML 150ML used . 16:33:36 HR=78 bpm, ZELK=881/104 mmhg, SpO2=94.0 %, Resp=7 B/min, Knowles=2 16:35:08 Catheter was removed 16:36:10 Case End 16:36:40 VASCADE, FR5 CLOSURE SYSTEM FR 5 placement in the Fem Art (right) Assessment: Final Case, HR=78 BPM, Rhythm=sr, ARCE=469/104 mmhg, Chest Pain=0, Edema=None, [place] r=Normal, Skin = Warm, Dry 16:37:01 Right Pulses: Tommy Ped=2, Femoral=2, Radial=2 Neurological: State=Alert, Ox3, MAN Respiration: Resp=18 B/min, SpO2=95 %, O2=0 lpm 16:37:19 25 mcg FENTANYL given in lab by Mickey Perez, JORGE A via Peripheral IV. 16:38:37 HR=79 bpm, HEKM=112/107 mmhg, SpO2=95.0 %, Resp=17 B/min, Knowles=2 Radial Compression Device Used. 13 mLs of air placed in BAND, RADIAL COMPRESSION TR LARGE 29 29 CM. Affected 16:40:32 hand 95 % O2 saturation. 16:41:28 Case End 16:43:41 HR=74 bpm, TYPH=041/103 mmhg, SpO2=97.0 %, Resp=16 B/min, Knowles=2 16:48:35 HR=69 bpm, UPYE=296/100 mmhg, SpO2=96.0 %, Resp=11 B/min, Knowles=2 16:49:13 Vitals capture stopped. 16:49:24 Catheter(s) removed without difficulty 16:49:30 Sterile dressing applied to site 16:49:32 No case complications noted. 16:49:34 Cine recording checked. 16:49:37 Bedside Report will be given. 16:50:01 Implantable Device card placed in patient's chart. 16:50:04 Contrast Scanned 16:50:13 Patient moved to [facility] End Study - Contrast Media Used In Study Contrast Total Opened (mL) Total Used (mL) Total Wasted (mL) Omnipaque 100 100 0 End Study - Maximum Contrast Load Max Contrast Load (mL) 453.6 End Study - Radiation Exposure Fluoro Time (minutes) 10.9 End Study - Patient Disposition Complications Transferred To Telemetry Bed
[2016-12-31] MEDS ORDERED: ATROPINE SULFATE 1 MG/ML VIAL IV PRN (17:00)
[2016-12-31] MEDS ORDERED: ONDANSETRON HCL 4 MG/2 ML VIAL IV PRN (17:00)
[2016-12-31] MEDS: MISC INFORMATION XX ONE (17:00)
[2016-12-31] MEDS ORDERED: MISC INFORMATION XX ONE (17:15)
[2016-12-31] MEDS: TIROFIBAN INFUSION INJ 250 ML IV SCH (17:51)
[2016-12-31] MEDS: ENALAPRILAT 1.25 MG/ML VIAL IV PRN (18:41)
--- NOTE | 2016-12-31 19:02 | MA ---
cc: VASHTI SOTO DATE: 12/31/2016. PROCEDURE PERFORMED: 1. Left heart catheterization. 2. Selective right and left coronary angiography. 3. Left ventricular hemodynamics. INDICATIONS FOR THE PROCEDURE: [id number] myocardial infarction. DESCRIPTION OF THE PROCEDURE IN DETAIL: Consent signed. The patient was brought into the [facility] in a fasting state. The right groin was prepped and draped in sterile fashion. Using 1% lidocaine for local anesthesia and a micropuncture kit, a 5-Romanian sheath was inserted into the right common femoral artery and a right common femoral artery angiography was performed to confirm position of the sheath. Then selective right and left coronary angiography was performed with an AR-1 and a JL-5 diagnostic catheters. Angiography was taken in multiple views. All catheters were exchanged over a wire. Then the JR diagnostic catheter was introduced to the ventricle over a wire. This was followed by pressure recordings and pullback. The patient tolerated the procedure well without complications. Estimated blood loss was less than 30 mL. Total contrast used was 40 mL. The right groin access site was closed with a Vascade closure device. RESULTS: LEFT VENTRICLE: Left ventricular pressure was 149/42 with an left ventricular end diastolic pressure of 19. The aortic pressure was 168/105 with a mean of 135. There was no gradient upon pullback from the left ventricle to aorta. ANGIOGRAPHY: 1. Right coronary artery: The right coronary artery is diffusely diseased, tortuous and dominant vessel giving off the PDA. The right coronary artery and has a long diffuse mid segment of focal lesions with the tightest lesion being one of 80%. Subsequently the PDA has an ostial lesion of 90% and the posterior bilateral branches are patent with PAPA III flow; however, diffusely diseased as well. 2. The left main: The left main is short and patent with nonobstructive coronary artery disease. 3. The left anterior descending: The left anterior descending is a transapical vessel. It has minimal luminal irregularities throughout. It has a significant mid 99% lesion with PAPA II flow. The left anterior descending also has a 40% lesion distally. It has several diagonal branches, however these are small and also diffusely diseased. D. The left circumflex: The left circumflex artery is also diffusely diseased. It has a 40% lesion proximally and also 80% distally is giving off two obtuse marginal branches which are also diffusely diseased. CONCLUSIONS: 1. Severe three-vessel coronary artery disease. 2. Left ventricular systolic dysfunction. 3. Diastolic dysfunction. RECOMMENDATIONS: Patient case discussed with CT surgery (Dr. Granado) for CABG vs High Risk PCI. He will be transferred to the CVICU, cont Heparin drip, Aspirin, Beta Blockers and statins. ACEi on hold due to CKD. Start Aggrastat. Patient remains chest pain-free and no signs of shock or HF (Killip I). MD IRVING Shrestha/ODIN /4:54 PM /6:56 PM CAN
[2016-12-31] MEDS ORDERED: RESP: ALBUTEROL 2.5 MG/IPRATROPIUM 0.5 MG NEB (PRN) NEB (19:30)
[2016-12-31] MEDS ORDERED: HEPARIN SODIUM - IV 10,000 UNITS/10 ML VIAL IV PRN ×2 (20:00)
[2016-12-31] MEDS: CARVEDILOL 3.125 MG TAB PO SCH (20:13)
[2016-12-31] MEDS ORDERED: LABETALOL HCL 100 MG/20 ML VIAL IV ONE (21:45)
[2016-12-31] MEDS: SODIUM CHLORIDE 0.9% FLUSH 10 ML FLUSH IV FLUSH SCH (22:11)
[2016-12-31 22:12] LABS: APTT (PATIENT) 29.1 SEC (24.3-30.1)
[2016-12-31 22:26] LABS: INDIRECT BILIRUBIN 0.5 MG/DL (0.0-0.8); TOTAL BILIRUBIN ADULT 0.6 MG/DL (0.2-1.0)
[2017-01-01] VITALS (11 sets, daily range): BP systolic 148–168; BP diastolic 70–103; PULSE 64–75; RESP 16–20; TEMP 97.8–98.5; O2SAT 94–99
[2017-01-01 02:23] LABS: BASOPHIL % 0.3 % (0.0-2.0); EOSINOPHIL # 0.1 TH/MM3 (0-0.4); EOSINOPHIL % 1.5 % (0.0-4.0); HEMO FLAGS DIFF FINAL; LYMPH % 24.3 % (9.0-44.0); LYMPHOCYTE # 2.3 TH/MM3 (1.0-4.8); MEAN CELL VOLUME 78.6 FL (80.0-100.0); MEAN CORPUSCULAR HEMOGLOBIN 26.8 PG (27.0-34.0); MEAN CORPUSCULAR HGB CONC 34.1 % (32.0-36.0); MONO % 8.9 % (0.0-8.0); PLATELET COUNT 272 TH/MM3 (150-450); RED BLOOD COUNT 5.34 MIL/MM3 (4.50-5.90); RED CELL DISTRIBUTION WIDTH 15.8 % (11.6-17.2); WHITE BLOOD COUNT 9.3 TH/MM3 (4.0-11.0)
[2017-01-01 02:36] LABS: ANION GAP 9 MEQ/L (5-15); BICARBONATE 27.3 MEQ/L (21.0-32.0); BLOOD UREA NITROGEN 13 MG/DL (7-18); CHLORIDE 106 MEQ/L (98-107); GLOMERULAR FILTRATION RATE 81 ML/MIN (>89); POTASSIUM 3.9 MEQ/L (3.5-5.1); SODIUM (NA) 142 MEQ/L (136-145)
[2017-01-01 02:40] LABS: CREATINE KINASE 265 U/L (39-308); HDL CHOLESTEROL 33.7 MG/DL (40.0-60.0); LDL CHOLESTEROL 136 MG/DL (0-99)
[2017-01-01 04:04] LABS: CKMB 14.7 NG/ML (0.5-3.6)
[2017-01-01] MEDS: TIROFIBAN INFUSION INJ 250 ML IV SCH (05:14)
[2017-01-01] MEDS: CARVEDILOL 3.125 MG TAB PO SCH ×2 (08:39→21:11)
[2017-01-01] MEDS: ATORVASTATIN 80 MG TAB PO SCH (08:39)
[2017-01-01] MEDS: SODIUM CHLORIDE 0.9% FLUSH 10 ML FLUSH IV FLUSH SCH ×2 (08:39→21:00)
[2017-01-01] MEDS: LISINOPRIL 20 MG TAB PO SCH (08:39)
[2017-01-01] MEDS: INSULIN ASPART SUPPLEMENTAL SCALE SQ SCH ×4 (08:41→21:00)
--- NOTE | 2017-01-01 08:45 | PD.CARD.PN ---
Subjective Subjective Remarks No overnight events Chest pain free No complaints Objective Medications Current Medications Medications (Trade) Dose Ordered Sig/Elly Route Start Time Stop Time Status Last Admin (Coreg) 3.125 mg BID PO 12/31/16 21:00 12/31/16 20:13 (Prinivil) 20 mg DAILY PO 01/01/17 09:00 (Lipitor) 80 mg DAILY PO 01/01/17 09:00 (NS Flush) 2 ml UNSCH PRN IV FLUSH 12/31/16 10:30 (NS Flush) 2 ml BID IV FLUSH 12/31/16 21:00 12/31/16 22:11 (Zofran Inj) 4 mg Q6H PRN IVP 12/31/16 10:30 12/31/16 10:58 (Narcan Inj) 0.4 mg UNSCH PRN IV 12/31/16 10:30 (Joan-Colace) 1 tab BID PRN PO 12/31/16 10:30 (Vasotec Inj) 1.25 mg Q6H PRN IV 12/31/16 10:30 12/31/16 18:41 (Aspirin Chew) 81 mg DAILY CHEW 01/01/17 09:00 (D50w (Vial) Inj) 50 ml UNSCH PRN IV 12/31/16 11:45 (Glucagon Inj) 1 mg UNSCH PRN OTHER 12/31/16 11:45 (Nitrostat Sl) 0.4 mg Q5M PRN SL 12/31/16 14:00 (Morphine Inj) 2 mg Q30M PRN IV 12/31/16 14:00 (Heparin Inj) 5,000 units UNSCH PRN IV 12/31/16 20:00 Heparin Sodium (Porcine) 2500 units 2,500 units UNSCH PRN IV 12/31/16 20:00 (Heparin-D5W Inj) 250 ml @ 0 mls/hr TITRATE IV 12/31/16 14:00 12/31/16 15:05 (Atropine Inj) 0.5 mg UNSCH PRN IV 12/31/16 17:00 Ondansetron HCl 4 mg 4 mg Q4H PRN IV 12/31/16 17:00 (Aggrastat Infusion Inj) 250 ml @ 22.86 mls/ hr [id number] IV 12/31/16 17:08 01/01/17 11:07 01/01/17 05:14 Vital Signs / I&O Vital Signs Date Time Temp Pulse Resp B/P Pulse Ox O2 Delivery O2 Flow Rate FiO2 01/01/17 07:42 99 Nasal Cannula 2.00 01/01/17 07:42 97.8 75 16 159/94 99 01/01/17 07:34 98 Nasal Cannula 2.00 01/01/17 07:00 75 01/01/17 04:00 98.5 73 18 152/88 95 01/01/17 04:00 73 01/01/17 00:00 65 01/01/17 00:00 98.3 65 18 148/70 96 12/31/16 21:25 95 Nasal Cannula 2.00 12/31/16 20:00 98.1 72 18 175/101 92 12/31/16 19:10 68 12/31/16 18:51 92 Nasal Cannula 2.00 12/31/16 18:14 63 12/31/16 17:14 97.4 68 19 178/94 93 12/31/16 17:14 71 12/31/16 15:35 98.0 62 20 157/88 99 12/31/16 15:00 69 12/31/16 14:00 71 12/31/16 13:00 63 12/31/16 12:30 68 12/31/16 12:30 97.7 62 20 149/89 99 12/31/16 11:53 98 21 12/31/16 11:37 71 18 165/102 100 Room Air 12/31/16 10:38 74 12/31/16 10:09 81 148/74 12/31/16 09:11 69 173/94 186/85 12/31/16 09:08 65 184/104 I/O 12/31/16 12/31/16 12/31/16 01/01/17 01/01/17 01/01/17 07:00 15:00 23:00 07:00 15:00 23:00 Intake Total 100 ml 480 ml Output Total 0 ml 800 ml Balance 100 ml -320 ml Intake Oral 0 ml 240 ml IV Total 100 ml 240 ml Output Urine Total 0 ml 800 ml # Bowel Movements 0 Physical Exam GENERAL: Well-nourished, well-developed patient. SKIN: Warm and dry. HEAD: Normocephalic. EYES: No scleral icterus. No injection or drainage. NECK: Supple, trachea midline. No JVD or lymphadenopathy. CARDIOVASCULAR: Regular rate and rhythm without murmurs, gallops, or rubs. RESPIRATORY: Breath sounds equal bilaterally. No accessory muscle use. GASTROINTESTINAL: Abdomen soft, non-tender, nondistended. EXTREMITIES: No cyanosis, or edema. NEUROLOGICAL: Awake, alert, and oriented x 3. Non-focal. Laboratory Laboratory Tests Test 12/31/16 12/31/16 01/01/17 13:55 21:40 02:06 Urine Opiates Screen NEG Urine Barbiturates Screen NEG Urine Amphetamines Screen NEG Urine Benzodiazepines Screen NEG Urine Cocaine Screen NEG Urine Cannabinoids Screen NEG Activated Partial 29.1 SEC Thromboplast Time Total Bilirubin 0.6 MG/DL Direct Bilirubin 0.1 MG/DL Indirect Bilirubin 0.5 MG/DL Aspartate Amino Transf 40 U/L (AST/SGOT) Alanine Aminotransferase 30 U/L (ALT/SGPT) Alkaline Phosphatase 68 U/L Total Creatine Kinase 263 U/L 265 U/L Troponin I 5.07 NG/ML 5.78 NG/ML Total Protein 7.9 GM/DL Albumin 3.6 GM/DL Thyroid Stimulating Hormone 1.780 uIU/ML 3rd Gen White Blood Count 9.3 TH/MM3 Red Blood Count 5.34 MIL/MM3 Hemoglobin 14.3 GM/DL Hematocrit 42.0 % Mean Corpuscular Volume 78.6 FL Mean Corpuscular Hemoglobin 26.8 PG Mean Corpuscular Hemoglobin 34.1 % Concent Red Cell Distribution Width 15.8 % Platelet Count 272 TH/MM3 Mean Platelet Volume 7.9 FL Neutrophils (%) (Auto) 65.0 % Lymphocytes (%) (Auto) 24.3 % Monocytes (%) (Auto) 8.9 % Eosinophils (%) (Auto) 1.5 % Basophils (%) (Auto) 0.3 % Neutrophils # (Auto) 6.0 TH/MM3 Lymphocytes # (Auto) 2.3 TH/MM3 Monocytes # (Auto) 0.8 TH/MM3 Eosinophils # (Auto) 0.1 TH/MM3 Basophils # (Auto) 0.0 TH/MM3 CBC Comment DIFF FINAL Differential Comment Sodium Level 142 MEQ/L Potassium Level 3.9 MEQ/L Chloride Level 106 MEQ/L Carbon Dioxide Level 27.3 MEQ/L Anion Gap 9 MEQ/L Blood Urea Nitrogen 13 MG/DL Creatinine 1.22 MG/DL Estimat Glomerular Filtration 81 ML/MIN Rate Random Glucose 76 MG/DL Calcium Level 8.9 MG/DL Creatine Kinase MB 14.7 NG/ML Triglycerides Level 78 MG/DL Cholesterol Level 185 MG/DL LDL Cholesterol 136 MG/DL HDL Cholesterol 33.7 MG/DL Cholesterol/HDL Ratio 5.48 RATIO Lipase 212 U/L Imaging Last Impressions Chest X-Ray 12/31/16 0820 Signed Impressions: Service Date/Time: Saturday, December 31, 2016 08:29 - CONCLUSION: Compensated cardiomegaly otherwise negative . Cardiac silhouette is prominent in this 36 year-old suggesting cardiac disease. Rudy Mcguire MD FACR Assessment and Plan Problem List: (1) Non-ST elevation AR (NSTEMI) Assessment and Plan: 36 y/o M with known CAD admitted with NSTEMI, found to have 3 vessel CAD on LHC and severely reduced LV function on ECHO. He remains hemodynamically stable, chest pain free. Case discussed with CT surgery for 3 Vessel CABG vs High Risk PCI tomorrow. Recommendations: 1. NPO after midnight 2. D/C Aggrastat 4 hrs before surgery 3. Cont ASA, BB, ACEi, Heparin drip and Statins 4. Low threshold to intervening sooner if he develops symptoms. Case discuss [facility] CT surgery, Nurse and Family (2) Morbid obesity with BMI of 40.0-44.9, adult (3) HTN (hypertension) (4) Diabetes mellitus, type 2 (5) Hyperlipidemia (6) Renal insufficiency Amor Pimentel MD Jan 01, 2017 08:45
[2017-01-01] MEDS ORDERED: ASPIRIN 81 MG CHEW TAB CHEW SCH (09:00)
[2017-01-01] MEDS ORDERED: INFLUENZA VIRUS VACCINE (QUADRIVALENT) 0.5 ML SYR IM ONE (10:00)
[2017-01-01] MEDS ORDERED: CEFAZOLIN INJ 500 MG in SODIUM CHLORIDE 0.9% IRR BTL 500 ML IRRIGATION SCH (10:45)
[2017-01-01] MEDS ORDERED: PAPAVERINE INJ 60 MG, NITROGLYCERIN INJ 100 MCG, DILTIAZEM INJ 100 MG in SODIUM CHLORID... IRRIGATION SCH (10:45)
[2017-01-01] MEDS ORDERED: CHLORHEXIDINE GLUCONATE 4% SOLN 120 ML BTL TOPICAL SCH (10:45)
[2017-01-01] MEDS ORDERED: INSULIN REGULAR (IV INFUSION) 100 UNITS in SODIUM CHLORIDE 0.9% INJ 100 ML IV SCH (10:45)
[2017-01-01] MEDS ORDERED: SODIUM CHLORIDE 0.9% FLUSH 10 ML FLUSH IV FLUSH PRN (10:45)
[2017-01-01] MEDS ORDERED: ceFAZolin 2 GM PREMIX 50 ML IV SCH (10:45)
[2017-01-01] MEDS ORDERED: METOPROLOL TARTRATE 25 MG TAB PO SCH (10:45)
[2017-01-01] MEDS: ENALAPRILAT 1.25 MG/ML VIAL IV PRN ×2 (11:30→23:30)
--- NOTE | 2017-01-01 11:45 | EKG ---
Date Performed: 12/31/2016 Time Performed: 08:20:10 PTAGE: 36 years EKG: Sinus rhythm POSSIBLE LEFT ATRIAL ENLARGEMENT LEFT VENTRICULAR HYPERTROPHY AND ST-T CHANGE INFERIOR MYOCARDIAL IN FARCTION Since previous tracing, no significant change noted ABNORMAL ECGPREVIOUS TRACING : 05.33 DOCTOR: Anurag Maya Interpretating Date/Time 01/02/2017 07:32:47
--- NOTE | 2017-01-01 11:49 | HHI.FPPN ---
Subjective Remarks Patient seen and examined this morning by medical team. No acute events overnight with vital signs stable. Patient's troponin increased to 5.78 overnight, however patient complained of no chest pain, light headedness, headaches, or vision changes. Medical team discussed with patient the critical results of his catheterization procedure and possibility of CABG with cardiothoracic surgery. All questions were answered and patient voiced verbal understanding. Currently he has no complaints and denies any fevers, chills, chest pain, shortness of breath, abdominal pain, NVD, or calf tenderness. ( Zachary Lawrence MD R1) Objective Vitals Vital Signs Date Time Temp Pulse Resp B/P Pulse Ox O2 Delivery O2 Flow Rate FiO2 01/01/17 07:42 99 Nasal Cannula 2.00 01/01/17 07:42 97.8 75 16 159/94 99 01/01/17 07:34 98 Nasal Cannula 2.00 01/01/17 07:00 75 01/01/17 04:00 98.5 73 18 152/88 95 01/01/17 04:00 73 01/01/17 00:00 65 01/01/17 00:00 98.3 65 18 148/70 96 12/31/16 21:25 95 Nasal Cannula 2.00 12/31/16 20:00 98.1 72 18 175/101 92 12/31/16 19:10 68 12/31/16 18:51 92 Nasal Cannula 2.00 12/31/16 18:14 63 12/31/16 17:14 97.4 68 19 178/94 93 12/31/16 17:14 71 12/31/16 15:35 98.0 62 20 157/88 99 12/31/16 15:00 69 12/31/16 14:00 71 12/31/16 13:00 63 12/31/16 12:30 68 12/31/16 12:30 97.7 62 20 149/89 99 12/31/16 11:53 98 21 12/31/16 11:37 71 18 165/102 100 Room Air I/O 12/31/16 12/31/16 12/31/16 01/01/17 01/01/17 01/01/17 06:59 14:59 22:59 06:59 14:59 22:59 Intake Total 100 ml 480 ml Output Total 0 ml 800 ml Balance 100 ml -320 ml Intake Oral 0 ml 240 ml IV Total 100 ml 240 ml Output Urine Total 0 ml 800 ml # Bowel Movements 0 (Zachary Lawrence MD R1) Result Diagram: 01/01/1720501/01/17205 Objective Remarks GENERAL: Well-nourished well-developed 36-year-old male lying in bed in no acute distress. SKIN: Warm and dry. No rash. HEENT: Atraumatic, normocephalic with EOMI. MMM. No LAD or JVD appreciated. No rhinorrhea. CARDIOVASCULAR: Regular rate and rhythm without obvious murmurs, gallops, or rubs. RESPIRATORY: Clear to auscultation bilaterally with no CRW. No increased work of breathing. GASTROINTESTINAL: Abdomen soft, non-tender, nondistended with positive bowel sounds. No masses appreciated. MUSCULOSKELETAL: No cyanosis or edema. Strength grossly WNL. NEURO/PSYCH: Afocal. Awake, alert, and oriented x3. Normal speech and interaction with examiners. (Zachary Lawrence MD R1) A/P Assessment and Plan Mr. Adams is a 36 -year-old male with past medical history of hypertension, diabetes mellitus, and prior NSTEMI presenting with reported 2 weeks of intermittent L sided chest pain likely secondary to therapy noncompliance. Cardiac catheterization showed critical stenosis of multiple vessels with recommendation of cardiothoracic surgery evaluation for possible CABG. Discharge Planning Pending evaluation and possible CABG procedure by cardiothoracic surgery. ( Zachary Lawrence MD R1) Attending Attestation Patient seen and examined. Case reviewed and discussed with the resident team. Agree with plan of care as discussed with me and documented in the resident note. (Bee Hernandez MD) Problem List: (1) Chest pain Status: Acute Plan: Patient with reported intermittent chest pain over the last 2 weeks with history of instability. Upon my evaluation patient had clinical change from initial evaluation by the ER physician as his pain had increased to 10/10 with N /V and diaphoresis. Repeat EKG was obtained that showed possible interval lateral lead changes. -Repeat ECHO: EF of 20-25% with global left ventricular dysfunction. Mildly dilated left ventricle and left atria. Mild left ventricular hypertrophy. -Initial EKG: No acute change from prior EKG in 2016. -Repeat EKG on evaluation: Possible lateral lead changes concerning for ischemia. Cardiology notified per ED staff. -CXR: Compensated cardiomegaly otherwise negative. Cardiac silhouette prominent in this 36-year-old suggestion cardiac disease. -CBC: WNL -BMP: Improved to 1.22 -LFT: AST 40 otherwise within normal limits -Initial Trop 0.45, 5.07, 5.78 -BNP: 97 -TSH: 1.78 -UDS: Within normal limits -Lipid panel: LDL 136, HDL 33, cholesterol 185, triglycerides 78 -Telemetry -Pulse ox with nasal cannula PRN -STAT Cardiology consult placed, appreciate recommendations. Dr. Clifford in contact with Dr. Sigala at the time of my evaluation and is aware of the patient. Dr. Sigala requested repeat EKG and to be contacted with those results by Dr. Clifford. Cardiac catheterization: Severe three-vessel coronary artery disease with left ventricular systolic dysfunction and diastolic dysfunction. Consult CT surgery for CABG evaluation, we will plan for CABG procedure tomorrow morning Hold ABIEL inhibitor due to CKD Start Aggrastat Medications: -ASA, Morphine 4mg, and Nitroglycerin give in ER x1. -Morphine 3mg Q2 hrs PRN chest pain only. -Continue Coreg 3.125mg BID -Hold Lisinopril 20mg QD -Continue Lipitor 80mg QHS -Supplemental O2. -Daily Plavix -Daily aspirin -Aggrastat (2) HTN (hypertension) Status: Acute Plan: Patient with history of chronic HTN presenting with pressure of 199/137. Patient is being noncompliant on home medications. Medications: Received hydralazine 20 mg in ER 1 Hold home lisinopril 20 mg daily Vasotec 1.25 mg IV every 6 hours when necessary for a pressure greater than 170 /100 Labetalol 20 mg IV given once overnight (3) Diabetes mellitus, type 2 Status: Acute Plan: Patient with reported diabetes mellitus. Currently not compliant with metformin. Sliding scale insulin per protocol Hold home metformin (4) Renal insufficiency Status: Chronic Plan: Patient with history of renal insufficiency. Per chart review baseline approximately 1.41. Patient has had noncompliance on medications. BMP: Creatinine 1.41 Continue to monitor (5) Hyperlipidemia Status: Chronic Plan: Patient with history of hyperlipidemia. Lipitor 80 mg daily at bedtime Lipid profile with morning labs (6) Nutrition, metabolism, and development symptoms Status: Acute Plan: Diet: Nothing by mouth for CABG procedure tomorrow morning Fluids: Not dehydrated, currently tolerating by mouth fluids Electrolytes: WNL, continue to monitor Prophylaxis: Zofran prn for NV, Joan-Colace for constipation (7) No contraindication to deep vein thrombosis (DVT) prophylaxis Status: Acute Plan: Heparin drip per protocol in preparation for CABG procedure LORETTA/SCDs (Zachary Lawrence MD R1) Zachary Lawrence MD R1 Jan 01, 2017 11:48 Bee Hernandez MD Jan 01, 2017 11:54
--- NOTE | 2017-01-01 11:57 | RADRPT ---
EXAM DATE/TIME: 01/01/2017 11:03 [facility] COMPARISON: No previous studies available for comparison. INDICATIONS : Pre-Op cardiac surgery. MEDICAL HISTORY : Hypertension. Chest pain. Palpitations. Dyspnea. Diabetes. SURGICAL HISTORY : Cardiac cath. ENCOUNTER: Initial ACUITY: 1 day PAIN SCORE: 1/10 LOCATION: Bilateral leg. TECHNIQUE: Venous ultrasound of the left and right leg was performed from the inguinal ligament to the proximal calf. Real-time, color Doppler and spectral tracing, compression and augmentation techniques were us ed. FINDINGS: RIGHT LEG: There is normal compressibility of the deep venous system from the inguinal region to the proximal ca lf. No echogenic clot is seen in the lumen of the common femoral, femoral, popliteal, and posterior tibial veins. There is a normal response of the venous system to proximal and distal augmentation an d respiration. LEFT LEG: There is normal compressibility of the deep venous system from the inguinal region to the proximal ca lf. No echogenic clot is seen in the lumen of the common femoral, femoral, popliteal, and posterior tibial veins. There is a normal response of the venous system to proximal and distal augmentation an d respiration. CONCLUSION: 1. No sonographic evidence for lower extremity DVT. Cesar Cam MD on January 01, 2017 at 11:54 Board Certified Radiologist. This report was verified electronically.
--- NOTE | 2017-01-01 12:27 | RADRPT ---
EXAM DATE/TIME: 01/01/2017 11:12 [facility] COMPARISON: No previous studies available for comparison. INDICATIONS : Pre-Op cardiac surgery. MEDICAL HISTORY : Hypertension. Chest pain. Palpitations. Dyspnea. Diabetes. SURGICAL HISTORY : Cardiac cath. ENCOUNTER: Initial ACUITY: 1 day PAIN SCORE: 2/10 LOCATION: Bilateral leg. GREATER SAPHENOUS VEIN THIGH: PROXIMAL: Right 3 mm Left 6 mm MID: Right 3 mm Left 4 mm DISTAL: Right 2 mm Left 3 mm CALF: PROXIMAL: Right 2 mm Left 2 mm MID: Right 3 mm Left 1 mm DISTAL: Right 2 mm Left 2 mm FINDINGS: The venous system of the lower extremities are patent by color Doppler imaging. Measurements of the leg veins (in mm) are listed above. CONCLUSION: Venous mapping as described above. Rudy Mcguire MD FACR on January 01, 2017 at 12:25 Board Certified Radiologist. This report was verified electronically.
--- NOTE | 2017-01-01 12:29 | RADRPT ---
EXAM DATE/TIME: 01/01/2017 10:51 [facility] COMPARISON: No previous studies available for comparison. INDICATIONS : Pre-Op cardiac surgery. MEDICAL HISTORY : Hypertension. Chest pain. Palpitations. Dyspnea. Diabetes. SURGICAL HISTORY : Cardiac cath. ENCOUNTER: Initial ACUITY: 1 day PAIN SCORE: 10 LOCATION: Bilateral neck PEAK SYSTOLIC VELOCITIES (cm/sec): ICA/CCA RATIO: Right: 1.1 Left: 1.3 ICA: Right: 77 Left: 127 CCA: Right: 72 Left: 97 ECA: Right: 77 Left: 70 VERTEBRAL: Right: 41 antegrade Left: 67 antegrade Elevated flow velocities and ICA/CCA ratios have been found to correlate with increased degrees of vessel stenosis, calculated as percentage of diameter relative to a normal segment of distal ICA/CCA FINDINGS: RIGHT CAROTID: There is no evidence for a hemodynamically significant carotid stenosis. Minimal int imal hyperplasia is present with scattered calcific plaque. LEFT CAROTID: There is no evidence for a hemodynamically significant carotid stenosis. Minimal inti mal hyperplasia is present with scattered calcific plaque. VERTEBRAL ARTERIES: Flow is antegrade in both vertebral arteries. MISCELLANEOUS: There are no ancillary masses or adenopathy. CONCLUSION: Negative examination for a hemodynamically significant carotid stenosis. Rudy Mcguire MD FACR Board Certified Radiologist. This report was verified electronically.
--- NOTE | 2017-01-01 13:46 | EKG ---
Date Performed: 12/31/2016 Time Performed: 10:39:21 PTAGE: 36 years EKG: Sinus rhythm POSSIBLE LEFT ATRIAL ENLARGEMENT POSSIBLE LEFT VENTRICULAR HYPERTROPHY INFERIOR MYOCARDIAL INFARCTIO N ABNORMAL ECG Left ventricular strain pattern not present in the lateral leads comapred to the prior tracing. PREVIOUS TRACING : 12/31/2016 08.20 DOCTOR: Anurag Maya Interpretating Date/Time 01/01/2017 13:44:16
--- NOTE | 2017-01-01 13:46 | EKG ---
Date Performed: 12/31/2016 Time Performed: 11:54:23 PTAGE: 36 years EKG: Sinus rhythm LEFT VENTRICULAR HYPERTROPHY AND ST-T CHANGE INFERIOR MYOCARDIAL INFARCTION ABNORMAL ECG Return of t he lateral ST-T wave changes compared to the prior tracing. PREVIOUS TRACING : 12/31/2016 11.53 DOCTOR: Anurag Maya Interpretating Date/Time 01/01/2017 13:44:46
[2017-01-01] MEDS: TIROFIBAN INFUSION 12.5 MG/NS 250 ML IV SCH ×2 (14:15→20:10)
[2017-01-01] MEDS ORDERED: TIROFIBAN BOLUS 5 MG/NS 100 ML IV ONE (14:15)
--- NOTE | 2017-01-01 16:30 | PD.CAR.PN ---
CVT Progress Note Subjective/Hospital Course: sts data discussed with pt RISK SCORES About the STS Risk Calculator Procedure: CAB Only Risk of Mortality: 0.841% Morbidity or Mortality: 18.922% Long Length of Stay: 5.324% Short Length of Stay: 44.813% Permanent Stroke: 0.646% Prolonged Ventilation: 14.065% DSW Infection: 0.92% Renal Failure: 4.04% Reoperation: 5.249% Objective: Vital Signs Date Time Temp Pulse Resp B/P Pulse Ox O2 Delivery O2 Flow Rate FiO2 01/01/17 15:20 98.0 65 18 159/96 96 01/01/17 15:20 96 Nasal Cannula 2.00 01/01/17 15:00 65 01/01/17 11:45 99 Nasal Cannula 2.00 01/01/17 11:45 98.4 65 16 164/103 99 01/01/17 11:00 66 01/01/17 07:42 99 Nasal Cannula 2.00 01/01/17 07:42 97.8 75 16 159/94 99 01/01/17 07:34 98 Nasal Cannula 2.00 01/01/17 07:00 75 01/01/17 04:00 98.5 73 18 152/88 95 01/01/17 04:00 73 01/01/17 00:00 65 01/01/17 00:00 98.3 65 18 148/70 96 12/31/16 21:25 95 Nasal Cannula 2.00 12/31/16 20:00 98.1 72 18 175/101 92 12/31/16 19:10 68 12/31/16 18:51 92 Nasal Cannula 2.00 12/31/16 18:14 63 12/31/16 17:14 97.4 68 19 178/94 93 12/31/16 17:14 71 Labs: Laboratory Tests Test 01/01/17 01/01/17 10:57 11:26 Blood Type O POSITIVE O POSITIVE Antibody Screen NEGATIVE Crossmatch Leukocyte-Reduced Red Blood Cells Blood Bank Comment Result Diagram: 01/01/176 01/01/17205 (1) Diabetes mellitus, type 2 (2) Hyperlipidemia (3) Renal insufficiency Nettie Parks Jan 01, 2017 16:30
[2017-01-01 16:33] LABS: HEMOGLOBIN A1a 0.8 %; HEMOGLOBIN A1b 0.6 %; HEMOGLOBIN Ao 54.9 %; HEMOGLOBIN F 0.7 %; HEMOGLOBIN LA1C 1.2 %; HEMOGLOBIN P3 2.3 %
[2017-01-01 17:42] LABS: BLOOD, URINE NEG (NEG); COMMENT (UR) CULT NOT INDICATED; CULTURE IF INDICATED CULT NOT INDICATED; GLUCOSE,URINE NEG (NEG); KETONE, URINE NEG (NEG); MUCUS URINE FEW /lpf (OCC); NITRITE,URINE NEG (NEG); PH, URINE 5.5 (5.0-8.5); URINE COLOR YELLOW (YELLW/STRAW)
--- NOTE | 2017-01-01 20:38 | MB ---
cc: MYRNA GRANADO DATE OF CONSULTATION 01/01/2017 DATE OF 1980 HISTORY OF THE PRESENT ILLNESS This is a 36-year-old male admitted with past medical history of coronary disease. Apparently underwent a cath a year ago but was treated medically. He had not followed up with his primary care physician. The only medication he was really taking was his lisinopril. Strong family history of premature coronary disease. He presented with left-sided chest discomfort for the last couple of weeks. Reported the pain to be pressure on exertion that radiated to his left shoulder, associated with some diaphoresis. No nausea, vomiting, headaches. His cardiac enzymes were elevated at 0.45. His EKG was unchanged from previous EKG. He was admitted with a [id number] IL. His echo last year showed an EF of 60%. His echo this year showed an EF of 20% to 25%. We were consulted to evaluate after he had underwent his cardiac cath which showed the RCA had a long diffuse mid segment lesion of 80%. Subsequently the PDA had an ostial lesion of 90%. The left main has some nonobstructive disease. The left anterior descending had a 99% mid lesion and 40% distally. The left circ had a 70% lesion proximally and 80% distally. Significant diastolic dysfunction. Recommendation is obviously for beta blockers. He is currently on Agrestat, aspirin. ABIEL is on hold secondary to his chronic kidney disease. There is currently no signs of shock or heart failure. PAST MEDICAL HISTORY Includes: 1. Hypertension. 2. Coronary disease post STEMI last year. 3. Diabetes mellitus. 4. Renal insufficiency. 5. Hyperlipidemia. 6. Obesity. PAST SURGICAL HISTORY No past surgical history. ALLERGIES NO KNOWN ALLERGIES. MEDICATIONS Home medications are: 1. Coreg. 2. Lisinopril. 3. Crestor, but he states that he has only been taking lisinopril. FAMILY HISTORY Mother had an IL at age 46. Father is alive and well with hyperlipidemia. SOCIAL HISTORY Denies smoking, illicit drugs or alcohol. 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 REVIEW OF SYSTEMS GENERAL: No night sweats, fever, heat and cold intolerance. SKIN: No psoriasis, itching or hives. HEENT: No blurred vision, hearing loss. RESPIRATORY: No cough, shortness of breath. CARDIOVASCULAR: As above in HPI. GASTROINTESTINAL: No diarrhea, vomiting. GENITOURINARY: No burning, frequency, urgency. CENTRAL NERVOUS SYSTEM: No history of TIA, CVA, seizure disorder. ENDOCRINE: He was told in the past that he was a borderline diabetic. PHYSICAL EXAMINATION VITAL SIGNS: On exam blood pressure 159/96, heart rate 65, temperature max 98, O2 sat 96% on 2 liters. GENERAL: Patient is awake, alert in no acute distress. HEENT: Head is normocephalic, atraumatic. Pupils equal and reactive. Oral mucosa pink, moist. NECK: Supple. No JVD. CARDIOVASCULAR: Heart sounds S1-S2, regular rate and rhythm. No rubs, murmurs, gallops. LUNGS: Clear to auscultation. No wheezes, rales or rhonchi. ABDOMEN: Soft, nontender. No masses or organomegaly. EXTREMITIES: No cyanosis, clubbing or edema. LABORATORY FINDINGS Shows hemoglobin is 14, hematocrit of 42, white cell count 9.3, platelet count 272. Chemistry, sodium 142, potassium 3.9, BUN of 13, creatinine 1.22. He came in with a creatinine 1.41. Troponin was elevated at 5.78. Cholesterol 185, LDL 136, HDL 33, lipase 212. TSH 1.7. INR 1.2. Urine drug screen negative. MRSA screen pending. IMAGING Carotid ultrasound unremarkable. Ultrasound of the lower extremities, no DVT. Vein mapping is adequate. IMPRESSION A 36-year-old male with history of coronary disease now status post non STEMI with elevated troponins. Echocardiogram showing ischemic disease with EF of 20-25%. Cardiac films have been reviewed by Dr. Myrna Granado. PLAN The plan will be for coronary artery bypass grafting times three to four. The patient is agreeable to proceed. In the meantime we will have to adequately maintain normalized blood pressure. Check hemoglobin A1c. He has got some chronic kidney disease. We will need to hold any kinase inhibitor unless his creatinine improves. Continue beta constanza, aspirin. He is also currently on Agrestat. Continue telemetry monitoring and we will follow accordingly. DICTATED BY: KEREN Dutton MD TAN Davis/GRECIA /4:38 PM /8:46 AM
[2017-01-01] MEDS ORDERED: SODIUM CHLORIDE 0.9% FLUSH 10 ML FLUSH IV FLUSH SCH (21:00)
[2017-01-02] VITALS (15 sets, daily range): BP systolic 143–180; BP diastolic 82–115; PULSE 55–89; RESP 16–20; TEMP 98–99.1; O2SAT 94–98
[2017-01-02] MEDS ORDERED: methylPREDNISolone SOD SUCC 125 MG/2 ML VIAL ONE (06:24)
[2017-01-02] MEDS ORDERED: ceFAZolin 2 GM PREMIX 50 ML ONE (06:24)
[2017-01-02] MEDS ORDERED: HEPARIN SODIUM - SQ 10,000 UNITS/ML VIAL ONE (06:24)
[2017-01-02] MEDS ORDERED: VANCOMYCIN HCL 1000 MG VIAL ONE (06:24)
[2017-01-02] MEDS: CARVEDILOL 3.125 MG TAB PO SCH (06:25)
[2017-01-02] MEDS: INSULIN ASPART SUPPLEMENTAL SCALE SQ SCH ×4 (07:00→20:58)
[2017-01-02] MEDS ORDERED: HEPARIN SODIUM - IV 10,000 UNITS/10 ML VIAL ONE ×4 (07:20→13:50)
[2017-01-02] MEDS: ATORVASTATIN 80 MG TAB PO SCH (09:00)
--- NOTE | 2017-01-02 09:18 | HHI.FPPN ---
Subjective Remarks Patient seen and examined this morning. No acute events overnight. Patient hypertensive overnight to 177/82 which responded appropriately to Vasotec. Currently the patient has no complaints and denies any fevers, chills, shortness of breath, chest pain, NVD, abdominal pain, or calf tenderness. Patient states he is ready for surgery. He understands the severity of his condition with importance of appropriate follow-up after the procedure and medication compliance. Objective Vitals Vital Signs Date Time Temp Pulse Resp B/P Pulse Ox O2 Delivery O2 Flow Rate FiO2 01/02/17 08:00 98.3 61 18 173/115 96 01/02/17 07:00 61 01/02/17 07:00 94 Room Air 01/02/17 04:00 55 20 166/92 98 01/02/17 04:00 98 Nasal Cannula 2.00 01/02/17 04:00 56 01/02/17 00:00 64 16 177/82 95 01/02/17 00:00 95 Nasal Cannula 2.00 01/02/17 00:00 64 01/01/17 20:25 96 Nasal Cannula 2.00 01/01/17 20:00 64 01/01/17 20:00 98.4 65 20 168/95 94 01/01/17 20:00 94 Nasal Cannula 2.00 01/01/17 15:20 98.0 65 18 159/96 96 01/01/17 15:20 96 Nasal Cannula 2.00 01/01/17 15:00 65 01/01/17 11:45 99 Nasal Cannula 2.00 01/01/17 11:45 98.4 65 16 164/103 99 01/01/17 11:00 66 I/O 01/01/17 01/01/17 01/01/17 01/02/17 01/02/17 01/02/17 07:00 15:00 23:00 07:00 15:00 23:00 Intake Total 480 ml 1349 ml 727 ml Output Total 800 ml 550 ml Balance -320 ml 799 ml 727 ml Intake Oral 240 ml 1080 ml 480 ml IV Total 240 ml 269 ml 247 ml Output Urine Total 800 ml 550 ml # Voids 1 4 # Bowel Movements 0 0 Result Diagram: 01/01/1720501/01/17 0206 Objective Remarks GENERAL: Well-nourished well-developed 36-year-old male lying in bed in no acute distress. Family member at bedside. SKIN: Warm and dry. No rash. HEENT: Atraumatic, normocephalic with EOMI. MMM. No LAD or JVD appreciated. No rhinorrhea. CARDIOVASCULAR: Regular rate and rhythm without obvious murmurs, gallops, or rubs. RESPIRATORY: Clear to auscultation bilaterally with no CRW. No increased work of breathing. GASTROINTESTINAL: Abdomen soft, non-tender, nondistended with positive bowel sounds. No masses appreciated. MUSCULOSKELETAL: No cyanosis or edema. Strength grossly WNL. NEURO/PSYCH: Afocal. Awake, alert, and oriented x3. Normal speech and interaction with examiners. A/P Assessment and Plan Mr. Adams is a 36 -year-old male with past medical history of hypertension, diabetes mellitus, and prior NSTEMI presenting with reported 2 weeks of intermittent L sided chest pain likely secondary to therapy noncompliance. Cardiac catheterization showed critical stenosis of multiple vessels with recommendation of cardiothoracic surgery evaluation for possible CABG. Per nursing report, cardiothoracic surgery and cardiology discussing CABG procedure versus catheterization. Discharge Planning Pending evaluation and possible CABG procedure by cardiothoracic surgery. Problem List: (1) Chest pain Status: Acute Plan: Patient with reported intermittent chest pain over the last 2 weeks with history of instability. Upon my evaluation patient had clinical change from initial evaluation by the ER physician as his pain had increased to 10/10 with N /V and diaphoresis. Repeat EKG was obtained that showed possible interval lateral lead changes. -Repeat ECHO: EF of 20-25% with global left ventricular dysfunction. Mildly dilated left ventricle and left atria. Mild left ventricular hypertrophy. -Initial EKG: No acute change from prior EKG in 2016. -Repeat EKG on evaluation: Possible lateral lead changes concerning for ischemia. Cardiology notified per ED staff. -CXR: Compensated cardiomegaly otherwise negative. Cardiac silhouette prominent in this 36-year-old suggestion cardiac disease. -Initial Troponins: 0.45, 5.07, 5.78 -Telemetry -Pulse ox with nasal cannula PRN -Cardiology consult placed, appreciate recommendations. Cardiac catheterization: Severe three-vessel coronary artery disease with left ventricular systolic dysfunction and diastolic dysfunction. Consult CT surgery for CABG evaluation Hold ABIEL inhibitor due to CKD Per nursing report, cardiology and cardiothoracic surgery discussing CABG versus cardiac stenting procedure planned for today, 01/02. Medications: -ASA, Morphine 4mg, and Nitroglycerin give in ER x1. -Morphine 3mg Q2 hrs PRN chest pain only. -Continue Coreg 3.125mg BID -Hold Lisinopril 20mg QD -Continue Lipitor 80mg QHS -Supplemental O2. -Daily Plavix -Daily aspirin -Aggrastat (2) HTN (hypertension) Status: Acute Plan: Patient with history of chronic HTN presenting with pressure of 199/137. Patient is being noncompliant on home medications. Medications: Received hydralazine 20 mg in ER 1 Hold home lisinopril 20 mg daily Vasotec 1.25 mg IV every 6 hours when necessary for a pressure greater than 170 /100 Labetalol 20 mg IV given once overnight (3) Diabetes mellitus, type 2 Status: Acute Plan: Patient with reported diabetes mellitus. Currently not compliant with metformin. Sliding scale insulin per protocol Hold home metformin (4) Renal insufficiency Status: Chronic Plan: Patient with history of renal insufficiency. Per chart review baseline approximately 1.41. Patient has had noncompliance on medications. BMP: Improved to 1.22 Continue to monitor (5) Hyperlipidemia Status: Chronic Plan: Patient with history of hyperlipidemia. Lipitor 80 mg daily at bedtime Lipid profile with morning labs (6) Nutrition, metabolism, and development symptoms Status: Acute Plan: Diet: Nothing by mouth for CABG procedure tomorrow morning Fluids: Not dehydrated, currently tolerating by mouth fluids Electrolytes: WNL, continue to monitor Prophylaxis: Zofran prn for NV, Joan-Colace for constipation (7) No contraindication to deep vein thrombosis (DVT) prophylaxis Status: Acute Plan: Heparin drip per protocol in preparation for CABG procedure LORETTA/Zachary Sadler MD R1 Jan 02, 2017 09:18
[2017-01-02 09:55] LABS: HEMATOCRIT 44.1 % (39.0-51.0); MEAN CELL VOLUME 79.1 FL (80.0-100.0); MEAN CORPUSCULAR HEMOGLOBIN 26.5 PG (27.0-34.0); MEAN CORPUSCULAR HGB CONC 33.5 % (32.0-36.0); PLATELET COUNT 305 TH/MM3 (150-450); RED BLOOD COUNT 5.58 MIL/MM3 (4.50-5.90); RED CELL DISTRIBUTION WIDTH 15.6 % (11.6-17.2); REVIEW FLAG FINAL; WHITE BLOOD COUNT 9.4 TH/MM3 (4.0-11.0)
[2017-01-02 10:16] LABS: BICARBONATE 22.7 MEQ/L (21.0-32.0); POTASSIUM 4.3 MEQ/L (3.5-5.1)
[2017-01-02] MEDS: ENALAPRILAT 1.25 MG/ML VIAL IV PRN (11:22)
[2017-01-02] MEDS ORDERED: IOHEXOL 350 MG/ML 100 ML BTL (for Cath Lab) OTHER ONE (12:43)
[2017-01-02] MEDS ORDERED: HEPARIN-NS/PF INJ 500 ML ONE ×2 (12:51)
[2017-01-02] MEDS ORDERED: NITROGLYCERIN INJ 5 ML ONE (12:52)
[2017-01-02] MEDS ORDERED: MIDAZOLAM HCL 5 MG/5 ML VIAL ONE ×2 (12:52→13:24)
[2017-01-02] MEDS ORDERED: LIDOCAINE HCL 1% PF 30 ML VIAL ONE (13:27)
[2017-01-02] MEDS ORDERED: hydrALAZINE HCL 20 MG/ML VIAL ONE (14:45)
[2017-01-02] MEDS ORDERED: CLOPIDOGREL 300 MG TAB ONE (14:47)
[2017-01-02] MEDS ORDERED: PROTAMINE SULFATE 50 MG/5 ML VIAL ONE (14:49)
--- NOTE | 2017-01-02 15:09 | PD.CAR.PN ---
CVT Progress Note Subjective/Hospital Course: Dr Sigala spoke with Dr Granado plan now is for high risk PCI today OR for CABG cancelled Objective: Vital Signs Date Time Temp Pulse Resp B/P Pulse Ox O2 Delivery O2 Flow Rate FiO2 01/02/17 11:00 Nasal Cannula 01/02/17 11:00 70 01/02/17 11:00 98.0 63 18 165/101 95 01/02/17 09:17 96 Nasal Cannula 2.00 01/02/17 08:00 98.3 61 18 173/115 96 01/02/17 07:00 61 01/02/17 07:00 94 Room Air 01/02/17 04:00 55 20 166/92 98 01/02/17 04:00 98 Nasal Cannula 2.00 01/02/17 04:00 56 01/02/17 00:00 64 16 177/82 95 01/02/17 00:00 95 Nasal Cannula 2.00 01/02/17 00:00 64 01/01/17 20:25 96 Nasal Cannula 2.00 01/01/17 20:00 64 01/01/17 20:00 98.4 65 20 168/95 94 01/01/17 20:00 94 Nasal Cannula 2.00 01/01/17 15:20 98.0 65 18 159/96 96 01/01/17 15:20 96 Nasal Cannula 2.00 Labs: Laboratory Tests Test 01/02/17 09:11 White Blood Count 9.4 TH/MM3 (4.0-11.0) Red Blood Count 5.58 MIL/MM3 (4.50-5.90) Hemoglobin 14.8 GM/DL (13.0-17.0) Hematocrit 44.1 % (39.0-51.0) Mean Corpuscular Volume 79.1 FL (80.0-100.0) Mean Corpuscular Hemoglobin 26.5 PG (27.0-34.0) Mean Corpuscular Hemoglobin 33.5 % Concent (32.0-36.0) Red Cell Distribution Width 15.6 % (11.6-17.2) Platelet Count 305 TH/MM3 (150-450) Mean Platelet Volume 8.2 FL (7.0-11.0) Sodium Level 137 MEQ/L (136-145) Potassium Level 4.3 MEQ/L (3.5-5.1) Chloride Level 105 MEQ/L (98-107) Carbon Dioxide Level 22.7 MEQ/L (21.0-32.0) Anion Gap 9 MEQ/L (5-15) Blood Urea Nitrogen 14 MG/DL (7-18) Creatinine 1.20 MG/DL (0.60-1.30) Estimat Glomerular Filtration 83 ML/MIN (>89) Rate Random Glucose 79 MG/DL (74-106) Calcium Level 9.2 MG/DL (8.5-10.1) Result Diagram: 01/02/1791001/02/17910 (1) Diabetes mellitus, type 2 (2) Hyperlipidemia (3) Renal insufficiency (4) Non-ST elevation NH (NSTEMI) Plan: 36 y/o M with known CAD admitted with NSTEMI, found to have 3 vessel CAD on LHC and severely reduced LV function on ECHO. He remains hemodynamically stable, chest pain free. Case discussed with CT surgery for 3 Vessel CABG. 3. Cont ASA, BB, ACEi, Heparin drip and Statins 4. Low threshold to intervening sooner if he develops symptoms. for high risk PCI today per Dr Sigala/ will sign off Nettie Parks Jan 02, 2017 15:09
[2017-01-02] MEDS ORDERED: SODIUM CHLOR 0.9% 1000 ML INJ 1,000 ML IV SCH (15:18)
[2017-01-02] MEDS ORDERED: ATROPINE SULFATE 1 MG/ML VIAL IV PRN (15:30)
[2017-01-02] MEDS ORDERED: MISC INFORMATION XX ONE (15:30)
[2017-01-02] MEDS ORDERED: ONDANSETRON HCL 4 MG/2 ML VIAL IV PRN (15:30)
--- NOTE | 2017-01-02 15:38 | CATHPROC ---
[employer] HIS Report Study Information Study Number Admission Scheduled Start Study Start [id number] Dec 31 2016 10:23AM 01/02/2017 Jan 02 2017 12:37PM Study Type Marcell Service Left Heart Cath Cardiac Catheterization Admit Source Facility Department Other [facility] - Professional Development Manager Physician and Clinical Staff Initial Amor Cheek Android Ios Developer Crystal Betancourt,JORGE A Android Ios Developerdaysi Barbosa RN, Mushtaq Recorder Blaise Pena,RT(R) TECH2 Scrub Dennis Bowen,RT(R) Procedures Performed Procedure Location (Site) Vessel Name Drug Eluting Inflatio CIRC Dist CIRC Drug Eluting Inflatio LAD Mid Left Coronary Impella Fem Art (right) Femoral Art L Heart Cath PTCA CIRC Dist CIRC PTCA LAD Mid Left Coronary Wire insertion Fem Art (left) Femoral Art Wire insertion Fem Art (right) Femoral Art Wire insertion CIRC Dist CIRC Equipment Time Data Network Architect Description Size Mfg Part Number Used/Scraped COPILOT VALVE, BLEEDBACK [id number] 13:50 [employer] Used CONTROL *[id number] PERCLOSE, PRO GLIDE CLOSER 13:20 [employer]GE [employer] C[employer] FR 6 [id number] *[id number] Used DEVICE PERCLOSE, PRO GLIDE CLOSER 13:20 [employer] C[employer] FR 6 21836 *[id number] Used DEVICE PERCLOSE, PRO GLIDE CLOSER 14:54 [employer]GE [employer]IT[employer] C[employer] FR 6 13307 *[id number] Used DEVICE PERCLOSE, PRO GLIDE CLOSER 14:57 [employer]GE [employer] C[employer] FR 6 25672 *[id number] Used DEVICE STENT, 3.0 X 15MM XIENCE [id number] 14:00 [employer] 3.0 X 15 Used ALPINE *[id number] WIRE, WHISPER W/HYDROCOAT [id number] 14:39 [employer] 300CM Used 300CM *[id number] 13:46 ABIOMED PUMPSET, IMPELLA 2.5 2.5 537334 Used TRANSDUCER, TRUWAVE [id number] 12:41 ROMERO MONAE * Used W/STOCKCOCK *[id number] BALLOON, 3.5 [place] [id number] 14:06 [employer]OSTON [employer] 3.5 15MM Used QUANTUM APEX MR *[id number] 14:17 [employer] STENT, SYNERGY 2.50 X 32MM Used *[id number] MPIS-502-10.0- INTRODUCER SET, 12:41 [employer]OOK INC. FR 5 SC-NT-U-SST Used MICROPUNCTURE, STIFFENED *[id number] [id number] *[id number] *[id number] WIRE, CHOICE PT 300CM PT EX. [id number] 14:26 Meditech 300CM Used SUPP *[id number] 12:41 Opax INDUSTRIES PACK, CCL CUSTOM * Used *[id number] BALLOON, 1.25 X 6MM SPRINTER [id number] 14:31 MEDTRONIC 6MM Used LEGEND OTW *[id number] 13:53 MEDTRONIC BALLOON, 2.5 X 12MM EUPHORA 12MM Used *[id number] [id number] 13:50 MEDTRONIC/AVE EBU 3.5 Z2 GUIDE CATHETER FR 6 Used *9502612 [id number] 13:59 MedManage Systems MEDICAL 30 MARTHA INDEFLATOR Used *[id number] PSI-6F-11- 12:41 Play[employer]ore SHEATH, FR6.5 PRELUDE 11CM FR 6.5 038ACT Used *[id number] [id number] 12:41 [employer]ore WIRE, 3MMJ .035 180CM 180CM Used *[id number] 12:41 NAMIC MANIFOLD, 4 PORT * Used *6328939 12:41 NYCOMED OMNIPAQUE, 350 MG, 150ML 150ML [id number] Used [id number] 12:41 LEIGH MEDICAL BLANKET,WARM AIR CCL * Used *5530069 13:36 [facility] [employer] SHEATH, EPS, FR8 FAST CATH FR 8 719412 Used WIRE, RUNTHROUGH NS FLOPPY 25-1011 13:52 TERUMO MEDICAL 180CM Used .014 180CM *[id number] 14:42 VASCULAR SOLUTIONS CATHETER, FR6 GUIDELINER FR 6 5571 *6777867 Used [id number] Scrap: Did not 14:14 [employer] STENT, SYNERGY 2.5 X 28MM *[id number] cross Equipment Model, Serial, Lot Number and Expiration Data Description Model Number Serial Number Lot Number Expiration Date INTRODUCER SET, [id number] 04-21-2019 MICROPUNCTURE, STIFFENED PERCLOSE, PRO GLIDE CLOSER [id number] 05-22-2018 DEVICE PERCLOSE, PRO GLIDE CLOSER [id number] 05-22-2018 DEVICE PERCLOSE, PRO GLIDE CLOSER [id number] 05-22-2018 DEVICE PERCLOSE, PRO GLIDE CLOSER [id number] 05-22-2018 DEVICE STENT, 3.0 X 15MM XIENCE PAYTON [id number] 06-08-2019 STENT, HARJINDER [id number] 08-23-2017 STENT, HARJINDER [id number] 08-08-2017 WIRE, CHOICE PT 300CM PT EX. [id number] 08-18-2018 SUPP History: Current Medications Medication Dosage/Unit Route Frequency Last Date/Time Taken Statins (any) ASA VASOTEC LISINOPRIL LIPITOR PLAVIX History: Allergies Allergy Reaction No Known Allergies History: Risk Factors Family History of Hypertension Dyslipidemia Previous [facility] Previous Heart Failure Premature CAD Yes Yes Yes Yes No Prior Valve Prior PCI Prior CABG Surgery No No No Cerebrovascular Peripheral Artery Chronic Lung On Dialysis Diabetes Diabetes Therapy Disease Disease Disease No No No No Yes Insulin History: CV Disease Selection Items Known CAD History: Stress Tests Stress or Imaging Studies Performed No History: Other Disease Selection Items CAD HTN Renal Failure/Insufficiency History: Other Current Smoker No Labs Hgb (g/dl) Hct (%) WBC (l/cumm) Platelets (thousands) 12.00-18.00 37.00-55.00 4.80-10.80 140.00-450.00 14.8 44.1 9.4 305 BUN (mg/dl) Creatinine (mg/dl) BUN:Creatinine (1:x) 8.00-20.00 0.10-9.00 10.00-20.00 14 1.2 11.7 Na (meq/l) K (meq/l) 138.00-146.00 3.80-5.10 137 4.3 Troponin I (ng/ml) CPK-MB (ng/ML) 0.40-2.30 0.00-7.00 5.78 Not Drawn Medication Medication Total Dose (Bolus/Oral) Medication Total Dosage/Unit 1% XYLOCAINE 40 mL APRESOLINE 20 mg FENTANYL 200 mcg HEPARIN 72064 units PLAVIX 600 mg PROTAMINE 30 mg VERSED 7 mg Medications (Bolus/Oral) Medication Time Given Dosage/Unit Administered By Reason VERSED 01/02/2017 1:14:42 PM 2 mg Crystal Betancourt 2 mg VERSED given in lab by Crystal Betancourt, JORGE A via Peripheral IV. Ordered by Amor Pimentel. FENTANYL 01/02/2017 1:15:04 PM 50 mcg Adamy, Crystal 50 mcg FENTANYL given in lab by Crystal Betancourt, JORGE A via Peripheral IV. Ordered by Zakiya-Jackson Amor. 1% XYLOCAINE 01/02/2017 1:16:10 PM 20 mL Sigala-Jackson, Amor 20 mL 1% XYLOCAINE given in lab by Amor Pimentel in Left Groin via Subcutaneous. Ordered by Amor Brenner. VERSED 01/02/2017 1:23:00 PM 2 mg Adamy, Crystal 2 mg VERSED given in lab by Crystal Betancourt RN via Peripheral IV. Ordered by Kavitha Pimentelro. FENTANYL 01/02/2017 1:24:00 PM 50 mcg Adamy, Crystal 50 mcg FENTANYL given in lab by Crystal Betancourt RN via Peripheral IV. Ordered by Amor Pimentel. 1% XYLOCAINE 01/02/2017 1:32:31 PM 20 mL Zakiya-Jackson Amor 20 mL 1% XYLOCAINE given in lab by Amor Pimentel in Right Groin via Subcutaneous. Ordered by Amor Amaro. HEPARIN 01/02/2017 1:40:51 PM 9000 units Crystal Betancourt 9000 units HEPARIN given in lab by Crystal Betancourt RN via Peripheral IV. Ordered by Kavitha Pimentelr o. HEPARIN 01/02/2017 1:51:30 PM 3000 units Crystal Betancourt 3000 units HEPARIN given in lab by Crystal Betancourt RN via Peripheral IV. Ordered by Margarito Pedr o. VERSED 01/02/2017 1:55:00 PM 1 mg Adamy, Crystal 1 mg VERSED given in lab by Crystal Betancourt RN via Peripheral IV. Ordered by Kavitha Pimentelro. FENTANYL 01/02/2017 1:56:10 PM 25 mcg Adamy, Crystal 25 mcg FENTANYL given in lab by Crystal Betancourt, JORGE A via Peripheral IV. Ordered by Kavitha Pimentelro. VERSED 01/02/2017 2:37:00 PM 2 mg Adamy, Crystal 2 mg VERSED given in lab by Crystal Betancourt RN via Peripheral IV. Ordered by Amor Pimentel. FENTANYL 01/02/2017 2:38:00 PM 25 mcg Adamy, Crystal 25 mcg FENTANYL given in lab by Crystal Betancourt RN via Peripheral IV. Ordered by Amor Pimentel. APRESOLINE 01/02/2017 2:46:52 PM 10 mg Adamy, Crystal 10 mg APRESOLINE given by Crystal Betancourt RN via Peripheral IV. Ordered by Amor Pimentel. PROTAMINE 01/02/2017 2:50:53 PM 30 mg Adamy, Crystal 30 mg PROTAMINE given by Crystal Betancourt RN. Ordered by Amor Pimentel. FENTANYL 01/02/2017 2:55:57 PM 50 mcg Adamy, Crystal 50 mcg FENTANYL given in lab by Crystal Betancourt RN via Peripheral IV. Ordered by Amor Pimentel. APRESOLINE 01/02/2017 3:00:00 PM 10 mg Adamy, Crystal 10 mg APRESOLINE given by Crystal Betancourt RN via Peripheral IV. Ordered by Amor Pimentel. PLAVIX 01/02/2017 3:02:16 PM 600 mg Adamy, Crystal 600 mg PLAVIX given in lab by Crystal Betancourt RN via Oral. Ordered by Amor Pimentel. Medication (Drip) Medication Time Given Dosage/Unit Concentration/Unit Diluent (ml) Solution IV Solutions 01/02/2017 12:46:50 PM 0 mL (IV) 500 NaCl .9 Patient arrived on IV Solutions via Peripheral IV. Pump/Drip Flow = 20 ml/hr using NaCl .9. Ordered b y Amor Pimentel. Initial Case Assessment Cardiovascular HR Rhythm NIBP Chest Pain 69 sr 169/91 0 Edema Present Skin color Skin None Normal Warm Dry Circulatory - Right Pulses Dorsalis Pedis Femoral 2 2 Scale (0,1,2,3,4,d) Circulatory - Left Pulses Dorsalis Pedis Femoral 2 2 Scale (0,1,2,3,4,d) Circulatory - Lower Extremities Color Lower Right Color Lower Left Normal Normal Neurological State Oriented to time-place- Alert Moves all extremities person Respiration - General SpO2 (%) 98 Final Case Assessment Cardiovascular HR Rhythm NIBP Chest Pain 87 sr 183/111 0 Edema Present Skin color Skin None Normal Warm Dry Circulatory - Right Pulses Dorsalis Pedis Femoral 2 2 Scale (0,1,2,3,4,d) Circulatory - Left Pulses Dorsalis Pedis Femoral 2 2 Scale (0,1,2,3,4,d) Circulatory - Lower Extremities Color Lower Right Color Lower Left Normal Normal Neurological State Oriented to time-place- Alert Moves all extremities person Respiration - General SpO2 (%) 99 Chronological Log Time Study Chronological Log 12:43:27 Patient arrived via Bed. 12:46:32 Patient Name, D.O.B, / Armband Verified By R.N. 12:46:34 Consent signed by the physician and the patient and verified by the Professional Development Manager staff. 12:46:36 Patient has been NPO for Less than 6Hrs. 12:46:37 Skin Breakdown- none 12:46:39 Patient Warmer Placed on the Table. 12:46:45 Disposable Defibrillator Pads Placed On Patient. 12:46:47 Anand Prominences Protected 12:46:49 A # 20 IV was noted in the Forearm (left). Grade = 0 Patient arrived on IV Solutions via Peripheral IV. Pump/Drip Flow = 20 ml/hr using NaCl .9. Ord ered by Margarito, 12:46:50 Amor. 12:46:51 History and physical on the chart or being dictated. Assessment: Initial Case, HR=69 BPM, Rhythm=sr, UKJA=502/91 mmhg, Chest Pain=0, Edema=None, Col or=Normal, Skin = Warm, Dry Right Pulses: Tommy Ped=2, Femoral=2 Left Pulses: Tommy Ped=2, Femoral=2 12:46:52 Lower Right Extremities: Color=Normal Lower Left Extremities: Color=Normal Neurological: State=Alert, Ox3, MAN Respiration: SpO2=98 % 12:46:54 Table restraints applied according to hospital policy 12:46:57 Bilateral groins prepped with 2% chlorhexidine, and with a 3 min. waiting time. Vitals capture started with the following parameters, Patient=Adult, Interval=5 min, Initial Pr uxlfav=087 mmHg, 12:48:43 Deflation Rate=5 mmHg 12:50:08 HR=28 bpm, CRBU=600/91 mmhg, RqO3=705.0 %, Resp=1 B/min, Pain=0, Elis=10, Knowles=2 12:54:34 HR=68 bpm, FWBK=416/90 mmhg, SpO2=96.0 %, Resp=9 B/min, Pain=0, Elis=10, Knowles=2 12:56:48 Reference ECG taken 12:59:33 HR=59 bpm, WHJT=109/97 mmhg, SpO2=98.0 %, Resp=72 B/min, Pain=0, Elis=10, Knowles=2 13:03:29 Pressure channel 1 zeroed. 13:04:34 HR=72 bpm, LTMB=443/100 mmhg, SpO2=95.0 %, Resp=6 B/min, Pain=0, Elis=10, Knowles=2 13:09:33 HR=64 bpm, XVMT=150/93 mmhg, SpO2=98.0 %, Resp=2 B/min, Pain=0, Elis=10, Knowles=2 Time Out. Correct patient, correct procedure,correct physician, ,power injector loaded or not l oaded with contrast with 13:14:06 surgical team present. Time Out Concurred by MD, individual staff and ELASTIC TAPE INSERTER in procedure 13:14:13 Case Start 13:14:29 Access site was Right Femoral Artery. 13:14:35 HR=77 bpm, HJJL=816/99 mmhg, SpO2=90.0 %, Resp=20 B/min, Pain=0, Elis=10, Knowles=2 13:14:42 2 mg VERSED given in lab by Crystal Betancourt, RN via Peripheral IV. Ordered by Scott Pimentel. 13:15:04 50 mcg FENTANYL given in lab by Crystal Betancourt, JORGE A via Peripheral IV. Ordered by Amor Bishop. 20 mL 1% XYLOCAINE given in lab by Amor Pimentel in Left Groin via Subcutaneous. Ordered by Margarito 13:16:10 Amor. 13:16:47 Access site was Left Femoral Artery. A INTRODUCER SET, MICROPUNCTURE, STIFFENED FR 5 was advanced into the Fem Art (left) using the Modified 13:17:34 Seldinger technique. 13:17:43 A sheath was exchanged in the Fem Art (left). This was necessary in order to accomodate a l arger catheter. 13:19:36 HR=71 bpm, JDQH=333/97 mmhg, SpO2=97.0 %, Resp=26 B/min, Pain=0, Elis=10, Knowles=2 13:22:18 A SHEATH, FR6.5 PRELUDE 11CM FR 6.5 was advanced into the Fem Art (left) using the Modified Seldinger technique. 13:23:00 2 mg VERSED given in lab by Crystal Betancourt, JORGE A via Peripheral IV. Ordered by Scott Pimentel. Recorded Pressure: Ao, HR=72, Condition=Condition 1 13:23:50 (Aorta) Ao 178/109/133 13:24:00 50 mcg FENTANYL given in lab by Crystal Betancourt, JORGE A via Peripheral IV. Ordered by Amor Bishop. 13:24:28 HR=77 bpm, LEYS=474/110 mmhg, SpO2=91.0 %, Resp=18 B/min, Pain=0, Elis=10, Knowles=2 13:30:21 HR=62 bpm, QRNZ=415/87 mmhg, SpO2=83.0 %, Resp=15 B/min, Pain=0, Elis=10, Knowles=2 20 mL 1% XYLOCAINE given in lab by Amor Pimentel in Right Groin via Subcutaneous. Ordered b georgina Pimentel 13:32:31 Amor. 13:34:31 HR=69 bpm, GTGC=489/98 mmhg, SpO2=97.0 %, Resp=20 B/min, Pain=0, Elis=10, Knowles=2 A INTRODUCER SET, MICROPUNCTURE, STIFFENED FR 5 was advanced into the Fem Art (right) using the Modified 13:34:51 Seldinger technique. A SHEATH, EPS, FR8 FAST CATH FR 8 was exchanged in the Fem Art (right). This was necessary in o rder to 13:35:17 accomodate a larger catheter. 13:36:39 PERCLOSE, PRO GLIDE CLOSER DEVICE FR 6 placement in the Fem Art (right) 13:37:24 PERCLOSE, PRO GLIDE CLOSER DEVICE FR 6 placement in the Fem Art (right) 13:39:36 HR=78 bpm, LMLO=164/103 mmhg, SpO2=98.0 %, Resp=15 B/min, Pain=0, Elis=10, Knowles=2 13:40:51 9000 units HEPARIN given in lab by Crystal Betancourt, JORGE A via Peripheral IV. Ordered by Amor Crouch. 13:42:24 pre dilating for impella A AL 1 INFINITI CATHETER FR 6 was advanced over a wire. OMNIPAQUE, 350 MG, 150ML 150ML was used for 13:43:52 injections. 13:44:33 HR=87 bpm, OYBZ=739/106 mmhg, SpO2=99.0 %, Resp=19 B/min, Pain=0, Elis=10, Knowles=2 13:45:30 A wire was inserted via Fem Art (right). .018 An PUMPSET, IMPELLA 2.5 2.5 was advanced into the left ventricle . Proper placement was confir med under 13:45:58 fluoroscopy and the catheter was sutured in place. 13:47:51 Wire removed. .018 13:48:34 impella is on! 13:50:21 HR=83 bpm, PVAP=676/111 mmhg, SpO2=98.0 %, Resp=15 B/min A EBU 3.5 Z2 GUIDE CATHETER FR 6 was advanced over a wire. OMNIPAQUE, 350 MG, 150ML 150ML was u sed for 13:50:59 injections. 13:51:30 3000 units HEPARIN given in lab by Crystal Betancourt, JORGE A via Peripheral IV. Ordered by Amor Crouch. 13:53:16 A WIRE, RUNTHROUGH NS FLOPPY .014 180CM 180CM was inserted via Fem Art (left). 13:54:37 HR=81 bpm, VJGK=342/96 mmhg, SpO2=99.0 %, Resp=16 B/min, Pain=0, Elis=10, Knowles=2 13:55:00 1 mg VERSED given in lab by Crystal Betancourt, JORGE A via Peripheral IV. Ordered by Scott Pimentel 13:56:10 25 mcg FENTANYL given in lab by Crystal Betancourt RN via Peripheral IV. Ordered by Amor Bishop. A BALLOON, 2.5 X 12MM EUPHORA 12MM was inserted over WIRE, RUNTHROUGH NS FLOPPY .014 180CM 180C M via 13:58:44 the LCA. A BALLOON, 2.5 X 12MM EUPHORA 12MM over a WIRE, RUNTHROUGH NS FLOPPY .014 180CM 180CM in the LA D Mid 13:58:54 was inflated using a 30 MARTHA INDEFLATOR at 10 martha for 12 sec. 13:59:37 Balloon Removed. 14:00:29 HR=85 bpm, AXXH=291/100 mmhg, SpO2=99.0 %, Resp=19 B/min, Pain=0, Elis=10, Knowles=2 A STENT, 3.0 X 15MM XIENCE ALPINE 3.0 X 15 was advanced through a EBU 3.5 Z2 GUIDE CATHETER FR 6 over a 14:00:29 WIRE, RUNTHROUGH NS FLOPPY .014 180CM 180CM. A STENT, 3.0 X 15MM XIENCE ALPINE 3.0 X 15 was deployed using a 30 MARTHA INDEFLATOR at 10 atmosph eres for 15 14:00:51 seconds in the LAD Mid. 14:02:22 Delivery device removed 14:04:39 HR=81 bpm, CKEM=336/112 mmhg, SpO2=99.0 %, Resp=11 B/min, Pain=0, Elis=10, Knowles=2 A BALLOON, 3.5 15MM NC QUANTUM APEX MR 3.5 15MM was inserted over WIRE, RUNTHROUGH NS FLOPPY .0 14 14:05:50 180CM 180CM via the LCA. A BALLOON, 3.5 15MM NC QUANTUM APEX MR 3.5 15MM over a WIRE, RUNTHROUGH NS FLOPPY .014 180CM 18 0CM 14:05:58 in the LAD Mid was inflated using a 30 MARTHA INDEFLATOR at 14 martha for 15 sec. 14:06:21 Balloon Removed. 14:06:34 Wire removed 14:06:37 A WIRE, RUNTHROUGH NS FLOPPY .014 180CM 180CM was inserted via CIRC Dist. 14:09:38 HR=83 bpm, VVQD=127/101 mmhg, SpO2=99.0 %, Resp=18 B/min, Pain=0, Elis=10, Knowles=2 14:10:20 Activated Clotting Time Drawn A BALLOON, 2.5 X 12MM EUPHORA 12MM was inserted over WIRE, RUNTHROUGH NS FLOPPY .014 180CM 180C M via 14:10:38 the CIRC Dist. A BALLOON, 2.5 X 12MM EUPHORA 12MM over a WIRE, RUNTHROUGH NS FLOPPY .014 180CM 180CM in the CI RC 14:11:07 Dist was inflated using a 30 MARTHA INDEFLATOR at 10 martha for 15 sec. A BALLOON, 2.5 X 12MM EUPHORA 12MM over a WIRE, RUNTHROUGH NS FLOPPY .014 180CM 180CM in the CI RC 14:11:27 Dist was inflated using a 30 MARTHA INDEFLATOR at 12 martha for 15 sec. A BALLOON, 2.5 X 12MM EUPHORA 12MM over a WIRE, RUNTHROUGH NS FLOPPY .014 180CM 180CM in the CI RC 14:11:48 Dist was inflated using a 30 MARTHA INDEFLATOR at 10 martha for 10 sec. A STENT, SYNERGY 2.5 X 28MM was advanced through a EBU 3.5 Z2 GUIDE CATHETER FR 6 over a WIRE, 14:13:11 RUNTHROUGH NS FLOPPY .014 180CM 180CM. 14:14:43 HR=85 bpm, YXYL=976/116 mmhg, SpO2=97.0 %, Resp=17 B/min, Pain=0, Elis=10, Knowles=2 A STENT, SYNERGY 2.5 X 28MM was deployed using a 30 MARTHA INDEFLATOR at 15 atmospheres for 15 sec onds in the 14:15:26 LAD Mid. 14:16:12 Stent not deployed. Stent removed and intact. A STENT, SYNERGY 2.50 X 32MM was advanced through a EBU 3.5 Z2 GUIDE CATHETER FR 6 over a WIRE, 14:17:02 RUNTHROUGH NS FLOPPY .014 180CM 180CM. A STENT, SYNERGY 2.50 X 32MM was deployed using a 30 MARTHA INDEFLATOR at 8 atmospheres for 15 sec onds in the 14:18:10 CIRC Dist. 14:19:49 HR=80 bpm, OEUW=978/97 mmhg, WnO1=300.0 %, Resp=14 B/min, Pain=0, Elis=10, Knowles=2 14:21:21 Wire removed After removing the current catheter a AL .75 GUIDE CATHETER FR 6 was advanced over a WIRE, 3MMJ .035 180CM 14:21:30 180CM. Recorded Pressure: LV, Ao, HR=82, Condition=Condition 1 14:22:58 (Left Ventricle) LV 191/15/24, (Aorta) Ao 193/127/157 14:24:46 HR=85 bpm, MPJE=980/111 mmhg, EiS0=435.0 %, Resp=18 B/min, Pain=0, Elis=10, Knowles=2 14:26:14 A WIRE, CHOICE PT 300CM PT EX. SUPP 300CM was inserted via Fem Art (left). 14:29:47 HR=82 bpm, XETQ=859/112 mmhg, YfY1=502.0 %, Resp=12 B/min A BALLOON, 1.25 X 6MM SPRINTER LEGEND OTW 6MM was inserted over WIRE, CHOICE PT 300CM PT EX. DA SILVA PP 14:31:43 300CM via the RCA. 14:34:46 HR=91 bpm, QKFP=370/112 mmhg, VfT6=387.0 %, Resp=14 B/min, Pain=0, Elis=10, Knowles=2 14:36:50 Balloon Removed. 14:36:56 Wire removed 14:37:00 2 mg VERSED given in lab by Crystal Betancourt, JORGE A via Peripheral IV. Ordered by Scott Pimentel. 14:38:00 25 mcg FENTANYL given in lab by Crystal Betancourt, JORGE A via Peripheral IV. Ordered by Amor Bishop. 14:38:21 The previous wire was exchanged for a WIRE, WHISPER W/HYDROCOAT 300CM 300CM. 14:39:51 HR=90 bpm, YAOF=531/118 mmhg, BaI7=055.0 %, Resp=14 B/min, Pain=0, Elis=10, Knowles=2 14:44:48 HR=87 bpm, WLOH=198/113 mmhg, SpO2=97.0 %, Resp=15 B/min, Pain=0, Elis=10, Knowles=2 14:45:37 Wire removed 14:45:49 Catheter was removed 14:46:07 impella is out 14:46:52 10 mg APRESOLINE given by Crystal Betancourt, JORGE A via Peripheral IV. Ordered by Kavitha Pimentel 14:49:51 HR=82 bpm, WIPG=563/111 mmhg, SpO2=99.0 %, Resp=22 B/min, Pain=0, Elis=10, Knowles=2 14:50:53 30 mg PROTAMINE given by Crystal Betancourt RN. Ordered by Amor Pimentel. Assessment: Final Case, HR=87 BPM, Rhythm=sr, WJPZ=241/111 mmhg, Chest Pain=0, Edema=None, Addison r=Normal, Skin = Warm, Dry Right Pulses: Tommy Ped=2, Femoral=2 Left Pulses: Tommy Ped=2, Femoral=2 14:51:24 Lower Right Extremities: Color=Normal Lower Left Extremities: Color=Normal Neurological: State=Alert, Ox3, MAN Respiration: SpO2=99 % 14:52:09 PERCLOSE, PRO GLIDE CLOSER DEVICE FR 6 placement in the Fem Art (right) 14:52:21 PERCLOSE, PRO GLIDE CLOSER DEVICE FR 6 placement in the Fem Art (right) 14:53:34 PERCLOSE, PRO GLIDE CLOSER DEVICE FR 6 placement in the Fem Art (left) 14:54:52 HR=78 bpm, PDNY=180/111 mmhg, SpO2=99.0 %, Resp=12 B/min, Pain=0, Elis=10, Knowles=2 14:55:57 50 mcg FENTANYL given in lab by Crystal Betancourt, JORGE A via Peripheral IV. Ordered by Amor Martin. 14:59:01 Case End 14:59:07 Sterile dressing applied to site 14:59:15 No case complications noted. 14:59:17 Cine recording checked. 14:59:20 Bedside Report will be given. 14:59:21 Implantable Device card placed in patient's chart. 14:59:24 Contrast Scanned 14:59:30 A Left Heart Cath was performed. 14:59:55 HR=86 bpm, DXUP=424/103 mmhg, RnL5=888.0 %, Resp=16 B/min, Pain=0, Elis=10, Knowles=2 15:00:00 10 mg APRESOLINE given by Crystal Betancourt RN via Peripheral IV. Ordered by Michael Pimentel. PCI QA completed: Pre-Billy - ~PRE BILLY~, Post Billy - ~POST BILLY~, Type - A, Length - ~LENGTH~ mm, Morphology - 15:00:06 ~MORPHOLOGY~, Indications - ~INDICATIONS~, Pre-Stenosis - ~PRESTENOSIS~% and Post Stenosis - ~POSTSTENOSIS~%. PCI QA completed: Pre-Billy - ~PRE BILLY~, Post Billy - ~POST BILLY~, Type - A, Length - ~LENGTH~ mm, Morphology - 15:02:05 ~MORPHOLOGY~, Indications - ~INDICATIONS~, Pre-Stenosis - ~PRESTENOSIS~% and Post Stenosis - ~POSTSTENOSIS~%. 15:02:16 600 mg PLAVIX given in lab by Crystal Betancourt, JORGE A via Oral. Ordered by Amro Pimentel. 15:05:37 HR=87 bpm, KENL=409/95 mmhg, SpO2=99 %, Resp=19 B/min 15:09:49 HR=84 bpm, GGKE=657/90 mmhg, SpO2=98 %, Resp=14 B/min 15:15:41 KAQZ=591/94 mmhg, SpO2=97 % 15:20:00 Patient moved to stretcher End Study - Contrast Media Used In Study Contrast Total Opened (mL) Total Used (mL) Total Wasted (mL) Omnipaque 300 245 55 End Study - Maximum Contrast Load Max Contrast Load (mL) 521.6 End Study - Radiation Exposure Fluoro Time (minutes) 29.5 End Study - Sheaths Sheaths Pulled By Sheath Hold Time (min) Amor Pimentel End Study - Patient Disposition Complications Transferred To Interventional Outcome No Critical Care Bed successful
[2017-01-02] MEDS ORDERED: CLOPIDOGREL 300 MG TAB PO ONE (16:00)
[2017-01-02] MEDS ORDERED: NITROGLYCERIN 0.4 MG SL 25 TABS/BTL SL PRN (16:15)
[2017-01-02] MEDS: NITROGLYCERIN 0.4 MG SL 25 TABS/BTL SL PRN (16:25)
--- NOTE | 2017-01-02 16:52 | MA ---
cc: KARENVASHTI Sarah DATE 01/02/2017 DATE OF 1980 PROCEDURE PERFORMED 1. Selective left and right coronary angiography. 2. Insertion of external heart assist system into the heart percutaneous approach. 3. Assist cardiac output using Impella Pump continuous. 4. High Risk PCI 5. Successful PCI / NATALIIA to proximal LAD. 6. Successful PCI NATALIIA to distal left circumflex artery. 7. Successful PreCLose of Right BENCH MOVER 8. Successful Perclose Closure of Left BENCH MOVER INDICATION [id number] myocardial infarction/ Severe LV systolic dysfunction DESCRIPTION OF PROCEDURE Consents signed. The patient was brought into the cardiac lab associate in fasting state. The right and left groins were prepped and draped in sterile fashion. Using 1% lidocaine for local anesthesia and a micropuncture kit, a 6-Faroese sheath was inserted into the left common femoral artery. Selective left common femoral angiography was performed to confirm position of the sheath. Then using 1% lidocaine and a micropuncture kit access an 8Fr sheath was inserted in the right common femoral artery, position was confirmed by angiography. IV heparin was given for anticoagulation. The right BENCH MOVER was the Preclose, and upsize to the 14Fr Impella sheath. Then an AL 1 over a 0.0035 wire was used to cross into the left ventricle, then the wire was exchange for a 0.018 wire, AL1 catheter was removed and the Impella Assist device was advanced over the wire and under fluoroscopy to the left ventricle. Impella position and function confirmed. Then the left main was engaged with a 3.5 EBU guide. The LAD was wired with a Run-through wire. The wire was anchored distally in the LAD. The lesion was predilated with a 2.5 x 12mm balloon followed by insertion and deployment of 3.0 x 15mm drug-eluting stent. The stent was postdilated with a noncompliant 3.5 x 15mm balloon to high atmospheres. Then we wired the left circumflex which had a distal 80% lesion with a run through wire. The distal LCx was pre- dilated with a 2.5 x 12mm balloon followed by insertion and deployment of 2.5 x 32mm drug-eluting stent. Final angiographic views revealed good stents apposition and expansion with PAPA III flow with no residual stenosis. The patient tolerated the procedure well without complications. Estimated blood loss less than 80 mL. Total contrast used 250 mL. The Impella device was then retrieved and the access sites were closed with a Perclose. The patient was loaded with Plavix after procedure. For Angiography details please refer to left heart cath done on Sunday. CONCLUSION 1. Successful insertion of an Impella assist device as well as removal. 2. Successful PCI / NATALIIA to proximal LAD. 3. Successful PCI / NATALIIA to the left circumflex artery. 4. Elevated LVEDP. 5. Severe LV systolic dysfunction. RECOMMENDATIONS -Transferred to CVICU for post cath care -Continue Aspirin and Plavix -Increase Coreg to 6.25mg PO daily -Start Lisinopril 10mg PO daily -IVF's 125cc/hr for the next 4 hours -After Bedrest out of bed, encourage out of bed MD IRVING Shrestha/GRECIA /3:18 PM /4:34 PM CAN
[2017-01-02] MEDS: CARVEDILOL 6.25 MG TAB PO SCH (20:57)
[2017-01-02] MEDS: SODIUM CHLORIDE 0.9% FLUSH 10 ML FLUSH IV FLUSH SCH (20:58)
[2017-01-03] VITALS (8 sets, daily range): BP systolic 146–158; BP diastolic 78–88; PULSE 73–87; RESP 16; TEMP 98.1–98.3; O2SAT 92–93
[2017-01-03 04:34] LABS: AUTOMATED NEUTROPHIL # 7.8 TH/MM3 (1.8-7.7); BASOPHIL % 0.3 % (0.0-2.0); EOSINOPHIL # 0.2 TH/MM3 (0-0.4); EOSINOPHIL % 1.7 % (0.0-4.0); HEMATOCRIT 43.4 % (39.0-51.0); HEMO FLAGS DIFF FINAL; LYMPH % 21.4 % (9.0-44.0); LYMPHOCYTE # 2.4 TH/MM3 (1.0-4.8); MEAN CELL VOLUME 79.3 FL (80.0-100.0); MEAN CORPUSCULAR HEMOGLOBIN 25.8 PG (27.0-34.0); MEAN CORPUSCULAR HGB CONC 32.6 % (32.0-36.0); NEUT % 69.6 % (16.0-70.0); PLATELET COUNT 271 TH/MM3 (150-450); RED BLOOD COUNT 5.47 MIL/MM3 (4.50-5.90); RED CELL DISTRIBUTION WIDTH 15.8 % (11.6-17.2); WHITE BLOOD COUNT 11.2 TH/MM3 (4.0-11.0)
[2017-01-03 04:42] LABS: BICARBONATE 24.2 MEQ/L (21.0-32.0); POTASSIUM 3.6 MEQ/L (3.5-5.1)
[2017-01-03] MEDS: INSULIN ASPART SUPPLEMENTAL SCALE SQ SCH (06:21)
[2017-01-03] MEDS: CARVEDILOL 6.25 MG TAB PO SCH (08:16)
[2017-01-03] MEDS: LISINOPRIL 20 MG TAB PO SCH (08:16)
[2017-01-03] MEDS: ATORVASTATIN 80 MG TAB PO SCH (08:18)
[2017-01-03] MEDS: SODIUM CHLORIDE 0.9% FLUSH 10 ML FLUSH IV FLUSH SCH (08:18)
[2017-01-03] MEDS: NITROGLYCERIN 0.4 MG SL 25 TABS/BTL SL PRN (08:23)
--- NOTE | 2017-01-03 08:24 | HHI.FPPN ---
Subjective Remarks Patient seen and examined this morning. No acute events overnight with VSS. Patient reports he tolerated his cardiac catheterization well. We thoroughly discussed the importance of compliance going forward regarding his medications, dietary habits, and exercise status. He understands the importance and states he is willing to make the necessary changes to avoid further intervention. He currently has no complaints and denies any fevers, chills, SOB, chest pain, NVD , ABD pain, or calf tenderness. (Zachary Lawrence MD R1) Objective Vitals Vital Signs Date Time Temp Pulse Resp B/P Pulse Ox O2 Delivery O2 Flow Rate FiO2 01/03/17 07:00 92 Room Air 01/03/17 07:00 98.1 73 16 158/88 92 01/03/17 07:00 73 01/03/17 06:00 86 01/03/17 05:00 74 01/03/17 04:00 77 01/03/17 03:00 80 01/03/17 03:00 98.3 80 16 146/78 93 01/03/17 03:00 93 Room Air 01/03/17 02:00 79 01/03/17 01:00 87 01/03/17 00:00 79 01/02/17 23:00 98.4 82 16 153/92 94 01/02/17 23:00 82 01/02/17 23:00 94 Room Air 01/02/17 22:00 84 01/02/17 21:40 21 01/02/17 21:00 88 01/02/17 20:00 98.4 82 16 143/82 98 01/02/17 20:00 82 01/02/17 20:00 98 Nasal Cannula 2.00 01/02/17 19:00 85 01/02/17 18:00 86 20 152/88 97 01/02/17 17:00 89 20 152/84 97 01/02/17 16:00 99.1 79 20 156/103 96 01/02/17 15:30 99.1 79 18 180/95 96 01/02/17 15:30 79 01/02/17 11:00 Nasal Cannula 01/02/17 11:00 70 01/02/17 11:00 98.0 63 18 165/101 95 01/02/17 09:17 96 Nasal Cannula 2.00 I/O 6/13/17 6/01/02/17 01/03/17 01/03/17 01/03/17 07:00 15:00 23:00 07:00 15:00 23:00 Intake Total 727 ml 740 ml 480 ml Output Total 800 ml 1000 ml Balance 727 ml -60 ml -520 ml Intake Oral 480 ml 240 ml 480 ml IV Total 247 ml 500 ml Output Urine Total 800 ml 1000 ml # Voids 4 # Bowel Movements 0 (Zachary Lawrence MD R1) Result Diagram: 01/03/1741001/03/17410 Objective Remarks GENERAL: Well-nourished well-developed 36-year-old male sitting up in his recliner in no acute distress. SKIN: Warm and dry. No rash. HEENT: Atraumatic, normocephalic with EOMI. MMM. No LAD or JVD appreciated. No rhinorrhea. CARDIOVASCULAR: Regular rate and rhythm without obvious murmurs, gallops, or rubs. RESPIRATORY: Clear to auscultation bilaterally with no CRW. No increased work of breathing. GASTROINTESTINAL: Abdomen soft, non-tender, nondistended with positive bowel sounds. No masses appreciated. MUSCULOSKELETAL: No cyanosis or edema. Strength grossly WNL. BL inguinal sites of incision with bandages,CDI. Mild tenderness to palpation to the L groin site. No erythema, signs of hemorrhage, or hematoma appreciated. NEURO/PSYCH: Afocal. Awake, alert, and oriented x3. Normal speech and interaction with examiners. (Zachary Lawrence MD R1) A/P Assessment and Plan Mr. Adams is a 36 -year-old male with past medical history of hypertension, diabetes mellitus, and prior NSTEMI presenting with reported 2 weeks of intermittent L sided chest pain likely secondary to therapy noncompliance. Cardiac catheterization showed critical stenosis of multiple vessels. High risk PCI performed on 01/02 with stenting of the LAD and circumflex arteries. Discharge Planning Pending clinical course s/p heart catheterization and discharge recommendations per cardiology. (Zachary Lawrence MD R1) Attending Attestation Patient seen and examined. Case reviewed and discussed with the resident team. Agree with plan of care as discussed with me and documented in the resident note. (Bee Hernandez MD) Problem List: (1) Chest pain Status: Acute Plan: Patient with reported intermittent chest pain over the last 2 weeks with history of instability. Upon my evaluation patient had clinical change from initial evaluation by the ER physician as his pain had increased to 10/10 with N /V and diaphoresis. Repeat EKG was obtained that showed possible interval lateral lead changes. -Repeat ECHO: EF of 20-25% with global left ventricular dysfunction. Mildly dilated left ventricle and left atria. Mild left ventricular hypertrophy. -Initial EKG: No acute change from prior EKG in 2016. -Repeat EKG on evaluation: Possible lateral lead changes concerning for ischemia. Cardiology notified per ED staff. -CXR: Compensated cardiomegaly otherwise negative. Cardiac silhouette prominent in this 36-year-old suggestion cardiac disease. -Initial Troponins: 0.45, 5.07, 5.78 -Telemetry -Pulse ox with nasal cannula PRN -Cardiology consult placed, appreciate recommendations. Cardiac catheterization 12/31: Severe three-vessel coronary artery disease with left ventricular systolic dysfunction and diastolic dysfunction. Cardiac catheterization 01/02: High risk PCI performed with stenting of the LAD and circumflex arteries. Continue ASA and Plavix Start Coreg 6.25 BID and Lisinopril 10mg QD Medications: -ASA, Morphine 4mg, and Nitroglycerin give in ER x1. -Morphine 3mg Q2 hrs PRN chest pain only. -Coreg 6.25mg BID -Lisinopril 10mg QD -Continue Lipitor 80mg QHS -Supplemental O2. -Daily Plavix -Daily aspirin -Aggrastat (2) HTN (hypertension) Status: Acute Plan: Patient with history of chronic HTN presenting with pressure of 199/137. Patient is being noncompliant on home medications. Medications: Received hydralazine 20 mg in ER 1 Hold home lisinopril 20 mg daily Vasotec 1.25 mg IV every 6 hours when necessary for a pressure greater than 170 /100 Labetalol 20 mg IV given once (3) Diabetes mellitus, type 2 Status: Acute Plan: Patient with reported diabetes mellitus. Currently not compliant with metformin. Sliding scale insulin per protocol Hold home metformin (4) Renal insufficiency Status: Chronic Plan: Patient with history of renal insufficiency. Per chart review baseline approximately 1.41. Patient has had noncompliance on medications. BMP: Creatinine continue to improve from admission Continue to monitor (5) Hyperlipidemia Status: Chronic Plan: Patient with history of hyperlipidemia. Lipitor 80 mg daily at bedtime Lipid profile with morning labs (6) Nutrition, metabolism, and development symptoms Status: Acute Plan: Diet: Heart Healthy as tolerated Fluids: Not dehydrated, currently tolerating by mouth fluids Electrolytes: WNL, continue to monitor Prophylaxis: Zofran prn for NV, Joan-Colace for constipation (7) No contraindication to deep vein thrombosis (DVT) prophylaxis Status: Acute Plan: Heparin drip DC post-procedure Defer further anticoagulation to cardiology LORETTA/SCDs (Zachary Lawrence MD R1) Zachary Lawrence MD R1 Jan 03, 2017 08:24 Bee Hernandez MD Jan 03, 2017 11:53
--- NOTE | 2017-01-03 08:52 | PD.CARD.PN ---
Subjective Subjective Remarks no complaints no chest pain or SOB ambulating without difficulty s/p high risk PCI to Prox LAD and LCx s/p Impella Assist Support Objective Medications Current Medications Medications (Trade) Dose Ordered Sig/Elly Route Start Time Stop Time Status Last Admin (Prinivil) 20 mg DAILY PO 01/01/17 09:00 01/03/17 08:16 (Lipitor) 80 mg DAILY PO 01/01/17 09:00 01/03/17 08:18 (NS Flush) 2 ml UNSCH PRN IV FLUSH 12/31/16 10:30 (NS Flush) 2 ml BID IV FLUSH 12/31/16 21:00 01/03/17 08:18 (Narcan Inj) 0.4 mg UNSCH PRN IV 12/31/16 10:30 (Joan-Colace) 1 tab BID PRN PO 12/31/16 10:30 (Vasotec Inj) 1.25 mg Q6H PRN IV 12/31/16 10:30 01/02/17 11:22 (D50w (Vial) Inj) 50 ml UNSCH PRN IV 12/31/16 11:45 (Glucagon Inj) 1 mg UNSCH PRN OTHER 12/31/16 11:45 (Nitrostat Sl) 0.4 mg Q5M PRN SL 12/31/16 14:00 01/02/17 16:25 (Morphine Inj) 2 mg Q30M PRN IV 12/31/16 14:00 (Coreg) 6.25 mg BID PO 01/02/17 21:00 01/03/17 08:16 (Aspirin Chew) 81 mg DAILY PO 01/03/17 09:00 01/03/17 08:17 (Plavix) 75 mg DAILY PO 01/03/17 09:00 01/03/17 08:16 (Atropine Inj) 0.5 mg UNSCH PRN IV 01/02/17 15:30 (Zofran Inj) 4 mg Q4H PRN IV 01/02/17 15:30 Vital Signs / I&O Vital Signs Date Time Temp Pulse Resp B/P Pulse Ox O2 Delivery O2 Flow Rate FiO2 01/03/17 07:00 92 Room Air 01/03/17 07:00 98.1 73 16 158/88 92 01/03/17 07:00 73 01/03/17 06:00 86 6/14/17 05:00 74 01/03/17 04:00 77 01/03/17 03:00 80 01/03/17 03:00 98.3 80 16 146/78 93 01/03/17 03:00 93 Room Air 01/03/17 02:00 79 01/03/17 01:00 87 01/03/17 00:00 79 01/02/17 23:00 98.4 82 16 153/92 94 01/02/17 23:00 82 01/02/17 23:00 94 Room Air 01/02/17 22:00 84 01/02/17 21:40 21 01/02/17 21:00 88 01/02/17 20:00 98.4 82 16 143/82 98 01/02/17 20:00 82 01/02/17 20:00 98 Nasal Cannula 2.00 01/02/17 19:00 85 01/02/17 18:00 86 20 152/88 97 01/02/17 17:00 89 20 152/84 97 01/02/17 16:00 99.1 79 20 156/103 96 01/02/17 15:30 99.1 79 18 180/95 96 01/02/17 15:30 79 01/02/17 11:00 Nasal Cannula 01/02/17 11:00 70 01/02/17 11:00 98.0 63 18 165/101 95 01/02/17 09:17 96 Nasal Cannula 2.00 I/O 01/02/17 01/02/17 01/02/17 01/03/17 01/03/17 01/03/17 07:00 15:00 23:00 07:00 15:00 23:00 Intake Total 727 ml 740 ml 480 ml Output Total 800 ml 1000 ml Balance 727 ml -60 ml -520 ml Intake Oral 480 ml 240 ml 480 ml IV Total 247 ml 500 ml Output Urine Total 800 ml 1000 ml # Voids 4 # Bowel Movements 0 Physical Exam GENERAL: Well-nourished, well-developed patient. SKIN: Warm and dry. HEAD: Normocephalic. EYES: No scleral icterus. No injection or drainage. NECK: Supple, trachea midline. No JVD or lymphadenopathy. CARDIOVASCULAR: Regular rate and rhythm without murmurs, gallops, or rubs. RESPIRATORY: Breath sounds equal bilaterally. No accessory muscle use. GASTROINTESTINAL: Abdomen soft, non-tender, nondistended. EXTREMITIES: No cyanosis, or edema. NEUROLOGICAL: Awake, alert, and oriented x 3. Non-focal. Laboratory Laboratory Tests Test 01/02/17 01/03/17 09:11 04:11 White Blood Count 9.4 TH/MM3 11.2 TH/MM3 Red Blood Count 5.58 MIL/MM3 5.47 MIL/MM3 Hemoglobin 14.8 GM/DL 14.1 GM/DL Hematocrit 44.1 % 43.4 % Mean Corpuscular Volume 79.1 FL 79.3 FL Mean Corpuscular Hemoglobin 26.5 PG 25.8 PG Mean Corpuscular Hemoglobin 33.5 % 32.6 % Concent Red Cell Distribution Width 15.6 % 15.8 % Platelet Count 305 TH/MM3 271 TH/MM3 Mean Platelet Volume 8.2 FL 7.8 FL Sodium Level 137 MEQ/L 136 MEQ/L Potassium Level 4.3 MEQ/L 3.6 MEQ/L Chloride Level 105 MEQ/L 103 MEQ/L Carbon Dioxide Level 22.7 MEQ/L 24.2 MEQ/L Anion Gap 9 MEQ/L 9 MEQ/L Blood Urea Nitrogen 14 MG/DL 15 MG/DL Creatinine 1.20 MG/DL 1.17 MG/DL Estimat Glomerular Filtration 83 ML/MIN 85 ML/MIN Rate Random Glucose 79 MG/DL 78 MG/DL Calcium Level 9.2 MG/DL 8.9 MG/DL Neutrophils (%) (Auto) 69.6 % Lymphocytes (%) (Auto) 21.4 % Monocytes (%) (Auto) 7.0 % Eosinophils (%) (Auto) 1.7 % Basophils (%) (Auto) 0.3 % Neutrophils # (Auto) 7.8 TH/MM3 Lymphocytes # (Auto) 2.4 TH/MM3 Monocytes # (Auto) 0.8 TH/MM3 Eosinophils # (Auto) 0.2 TH/MM3 Basophils # (Auto) 0.0 TH/MM3 CBC Comment DIFF FINAL Differential Comment Imaging Last Impressions Lower Extremity Ultrasound 01/01/17 0000 Signed Impressions: Service Date/Time: Sunday, January 01, 2017 11:12 - CONCLUSION: Venous mapping as described above. Rudy Mcguire MD FACR Carotid Artery Ultrasound 01/01/17 0000 Signed Impressions: Service Date/Time: Sunday, January 01, 2017 10:51 - CONCLUSION: Negative examination for a hemodynamically significant carotid stenosis. Rudy Mcguire MD Chest X-Ray 12/31/16 0820 Signed Impressions: Service Date/Time: Saturday, December 31, 2016 08:29 - CONCLUSION: Compensated cardiomegaly otherwise negative . Cardiac silhouette is prominent in this 36 year-old suggesting cardiac disease. Rudy Mcguire MD FACR Assessment and Plan Problem List: (1) Non-ST elevation NV (NSTEMI) Assessment and Plan: s/p High Risk PCI. Doing well. No complaints. No overnight events Recommendations: 1. Continue Aspirin and Plavix 2. Cont BB, ACEi and Statin 3. Start Imdur 30mg PO daily 4. Encourage ambulation 5. Cardiac diet and weight loss encourage Patient stable form CV standpoint to be d/c home today and follow up with me in 1 week. (2) Diabetes mellitus, type 2 (3) Hyperlipidemia (4) Renal insufficiency Amor Pimentel MD Jan 03, 2017 08:52
[2017-01-03] MEDS ORDERED: ASPIRIN 81 MG CHEW TAB PO SCH (09:00)
[2017-01-03] MEDS ORDERED: CLOPIDOGREL 75 MG TAB PO SCH (09:00)
--- NOTE | 2017-01-03 09:39 | HHI.DCPOC ---
Discharge Care Plan Diagnosis: (1) Chest pain (2) HTN (hypertension) (3) Non-ST elevation VT (NSTEMI) Goals to Promote Your Health * To prevent worsening of your condition and complications * To maintain your health at the optimal level Directions to Meet Your Goals Take your medications as prescribed Follow your dietary instruction Follow activity as directed Keep your appointments as scheduled Take your immunizations and boosters as scheduled If your symptoms worsen call your PCP, if no PCP go to Urgent Care Center or Emergency Room Smoking is Dangerous to Your Health. Avoid second hand smoke Call the 24-hour hour crisis hotline for domestic abuse at Zachary Lawrence MD R1 Jan 03, 2017 09:39
[2017-01-03] MEDS ORDERED: ISOSORBIDE MONONITRATE 30 MG TAB PO ONE (09:45)
[2017-01-03] MEDS ORDERED: FUROSEMIDE 20 MG TAB PO SCH (09:45)
[2017-01-03] MEDS ORDERED: CARV6.25 PO ×2 (10:00→11:18)
[2017-01-03] MEDS ORDERED: ATOR1TAB18 PO ×2 (10:00→11:18)
[2017-01-03] MEDS ORDERED: ASPI81CH25 PO ×2 (10:00→11:18)
[2017-01-03] MEDS ORDERED: PLAV75TA29 PO ×2 (10:00→11:18)
[2017-01-03] MEDS ORDERED: FURO20TA PO ×2 (10:00→11:18)
[2017-01-03] MEDS ORDERED: ISOS30TA3 PO ×2 (10:00→11:18)
[2017-01-03] MEDS ORDERED: METF500T4 PO ×2 (10:24→11:18)
--- NOTE | 2017-01-03 10:58 | HHI.DS ---
Discharge Summary Admission Date Dec 31, 2016 at 10:23 Discharge Date: Jan 03, 2017 Admitting Diagnosis NSTEMI (1) Chest pain Diagnosis: Principal Plan: Patient with reported intermittent chest pain over the last 2 weeks with history of instability. Upon my evaluation patient had clinical change from initial evaluation by the ER physician as his pain had increased to 10/10 with N /V and diaphoresis. Repeat EKG was obtained that showed possible interval lateral lead changes. -Repeat ECHO: EF of 20-25% with global left ventricular dysfunction. Mildly dilated left ventricle and left atria. Mild left ventricular hypertrophy. -Initial EKG: No acute change from prior EKG in 2016. -Repeat EKG on evaluation: Possible lateral lead changes concerning for ischemia. Cardiology notified per ED staff. -CXR: Compensated cardiomegaly otherwise negative. Cardiac silhouette prominent in this 36-year-old suggestion cardiac disease. -Initial Troponins: 0.45, 5.07, 5.78 -Telemetry -Pulse ox with nasal cannula PRN -Cardiology consult placed, appreciate recommendations. Cardiac catheterization 12/31: Severe three-vessel coronary artery disease with left ventricular systolic dysfunction and diastolic dysfunction. Cardiac catheterization 01/02: High risk PCI performed with stenting of the LAD and circumflex arteries. Continue ASA and Plavix Start Coreg 6.25 BID and Lisinopril 10mg QD Medications: -ASA, Morphine 4mg, and Nitroglycerin give in ER x1. -Morphine 3mg Q2 hrs PRN chest pain only. -Coreg 6.25mg BID -Lisinopril 10mg QD -Continue Lipitor 80mg QHS -Supplemental O2. -Daily Plavix -Daily aspirin -Aggrastat (2) HTN (hypertension) Diagnosis: Principal Plan: Patient with history of chronic HTN presenting with pressure of 199/137. Patient is being noncompliant on home medications. Medications: Received hydralazine 20 mg in ER 1 Hold home lisinopril 20 mg daily Vasotec 1.25 mg IV every 6 hours when necessary for a pressure greater than 170 /100 Labetalol 20 mg IV given once (3) Diabetes mellitus, type 2 Diagnosis: Secondary Plan: Patient with reported diabetes mellitus. Currently not compliant with metformin. Sliding scale insulin per protocol Hold home metformin (4) Renal insufficiency Diagnosis: Principal Plan: Patient with history of renal insufficiency. Per chart review baseline approximately 1.41. Patient has had noncompliance on medications. BMP: Creatinine continue to improve from admission Continue to monitor (5) Hyperlipidemia Diagnosis: Secondary Plan: Patient with history of hyperlipidemia. Lipitor 80 mg daily at bedtime Lipid profile with morning labs (6) Nutrition, metabolism, and development symptoms Diagnosis: Principal Plan: Diet: Heart Healthy as tolerated Fluids: Not dehydrated, currently tolerating by mouth fluids Electrolytes: WNL, continue to monitor Prophylaxis: Zofran prn for NV, Joan-Colace for constipation (7) No contraindication to deep vein thrombosis (DVT) prophylaxis Diagnosis: Principal Plan: Heparin drip DC post-procedure Defer further anticoagulation to cardiology LORETTA/SCDs Brief History Mr. Adams is a 36 -year-old male with past medical history of hypertension, diabetes mellitus, and prior NSTEMI presenting with reported 2 weeks of intermittent L sided chest pain. He has had up to 10 episodes of chest pain over the last 2 weeks that are all similar in nature. The pain is at rest and with exertion. He describes it as a "pressure pain" similar to when he had his NSTEMI that radiates to his L shoulder. He endorses diaphoresis, but denies any N/V, headaches, blurry vision, diaphoresis, or "tearing" pain. Currently he states the pain is 10/10 in nature with pressure over the L side of his chest radiating to his left shoulder. He is diaphoretic with nausea and 1 episode of vomiting per staff. He reports that he has been compliant with his Coreg, lisinopril, statin, and aspirin. However he has not been compliant with his metformin, Plavix, and nitroglycerin as needed. Approximately one year ago he was evaluated with cardiac catheterization without stenting for an NSTEMI. Echocardiogram showed EF of 55 to 60% at that time. Otherwise he has no complaints and denies any fevers, shortness of breath, abdominal pain, or calf tenderness. CBC/BMP: 01/03/17 0411 01/03/17 0411 Significant Findings Laboratory Tests Test 12/31/16 01/01/17 01/01/17 01/02/17 21:40 02:06 16:38 09:11 Aspartate Amino Transf 40 U/L (15-37) (AST/SGOT) Troponin I 5.07 NG/ML 5.78 NG/ML (0.02-0.05) (0.02-0.05) Mean Corpuscular Volume 78.6 FL 79.1 FL (80.0-100.0) (80.0-100.0) Mean Corpuscular Hemoglobin 26.8 PG 26.5 PG (27.0-34.0) (27.0-34.0) Monocytes (%) (Auto) 8.9 % (0.0-8.0) Estimat Glomerular Filtration 81 ML/MIN (>89) 83 ML/MIN (>89) Rate Creatine Kinase MB 14.7 NG/ML (0.5-3.6) LDL Cholesterol 136 MG/DL (0-99) HDL Cholesterol 33.7 MG/DL (40.0-60.0) Urine Mucus FEW /lpf (OCC) Test 01/03/17 04:11 White Blood Count 11.2 TH/MM3 (4.0-11.0) Mean Corpuscular Volume 79.3 FL (80.0-100.0) Mean Corpuscular Hemoglobin 25.8 PG (27.0-34.0) Neutrophils # (Auto) 7.8 TH/MM3 (1.8-7.7) Estimat Glomerular Filtration 85 ML/MIN (>89) Rate PE at Discharge GENERAL: Well-nourished well-developed 36-year-old male sitting up in his recliner in no acute distress. SKIN: Warm and dry. No rash. HEENT: Atraumatic, normocephalic with EOMI. MMM. No LAD or JVD appreciated. No rhinorrhea. CARDIOVASCULAR: Regular rate and rhythm without obvious murmurs, gallops, or rubs. RESPIRATORY: Clear to auscultation bilaterally with no CRW. No increased work of breathing. GASTROINTESTINAL: Abdomen soft, non-tender, nondistended with positive bowel sounds. No masses appreciated. MUSCULOSKELETAL: No cyanosis or edema. Strength grossly WNL. BL inguinal sites of incision with bandages,CDI. Mild tenderness to palpation to the L groin site. No erythema, signs of hemorrhage, or hematoma appreciated. NEURO/PSYCH: Afocal. Awake, alert, and oriented x3. Normal speech and interaction with examiners. Hospital Course Patient was admitted and cardiology was consulted as repeat EKG showed lateral lead ST changes. Echocardiogram also significant for ejection fraction of 20-25% . Cardiology proceeded with cardiac catheterization on hospital day one which showed multivessel disease with significant blockages and initially recommended CABG evaluation by cardiothoracic surgery. After further discussion with cardiology and cardiothoracic surgery, it was decided the patient would benefit from high risk catheterization and stenting at this time. On hospital day 3 cardiology completed stenting of his LAD and circumflex arteries without complication. The patient was cleared by cardiology for discharge on hospital day 4 without complaints including fevers, chills, shortness of breath, chest pain, NVD, abdomen, or calf tenderness. Patient was encouraged to follow-up with his PCP cardiology within 1 week. He will be discharged home on metformin, Imdur, furosemide, atorvastatin, aspirin, Plavix, lisinopril, and carvedilol as prescribed below. Patient was also educated on importance of medication compliance, close follow-up, nutritious dietary changes, and increase in his exercise. Pt Condition on Discharge: Stable Discharge Disposition: Discharge Home Discharge Instructions DIET: Follow Instructions for: Heart Healthy Diet Activities you can perform: Regular-No Restrictions Other Activity Instructions: Ambulation encouraged. Follow up Referrals: Cardiology - 1 Week with Amor Pimentel MD PCP Follow-up - 1 Week New Medications: Metformin ER (Metformin ER) 500 Mg Rufus 500 MG PO BID With evening meal Blood Sugar Management #60 Ref 1 TAB Aspirin (Aspirin Low Strength) 81 Mg Chew 81 MG PO DAILY #30 Ref 1 EA Atorvastatin (Atorvastatin) 80 Mg Tab 80 MG PO DAILY CM #30 Ref 1 TAB Carvedilol (Coreg) 6.25 Mg Tab 6.25 MG PO BID #60 Ref 1 TAB Clopidogrel (Plavix) 75 Mg Tab 75 MG PO DAILY #30 Ref 1 TAB Furosemide (Furosemide) 20 Mg Tab 20 MG PO DAILY #30 Ref 1 TAB Isosorbide Mononitrate ER (Isosorbide Mononitrate ER) 30 Mg Rufus 30 MG PO DAILY@07 #30 Ref 1 TAB Discontinued Medications: Carvedilol (Coreg) 3.125 Mg Tab 3.125 MG PO BID #60 Ref 0 TAB Lisinopril (Lisinopril) 20 Mg Tab 20 MG PO DAILY #30 Ref 0 TAB Rosuvastatin (Crestor) 40 Mg Tab 40 MG PO DAILY Cholesterol Management #30 Ref 0 TAB Zachary Lawrence MD R1 Jan 03, 2017 10:58
[2017-01-03] MEDS ORDERED: LISI-515 PO (11:18)
[2017-01-04] MEDS ORDERED: ISOSORBIDE MONONITRATE 30 MG TAB PO SCH (07:00)
== END 2017-01-03 11:35 | disposition home or self-care (01) | DRG 215 ==
LOC: NEPE 08:07 → NEDA 10:23 → HCIN 12:30 → HCVR 16:58 → HCIN 01-03 10:51
PROVIDERS: ADMIT Family Medicine; ATTEND Family Medicine
PROC: 4A023N7 Measurement of Cardiac Sampling and Pressure, Left Heart, Percutaneous Approach (ICD-10-PCS; 2016-12-31)
PROC: B2111ZZ Fluoroscopy of Multiple Coronary Arteries using Low Osmolar Contrast (ICD-10-PCS; 2016-12-31)
PROC: B41F1ZZ Fluoroscopy of Right Lower Extremity Arteries using Low Osmolar Contrast (ICD-10-PCS; 2016-12-31)
PROC: 5A0221D Assistance with Cardiac Output using Impeller Pump, Continuous (ICD-10-PCS; 2017-01-02)
PROC: 027135Z Dilation of Coronary Artery, Two Arteries with Two Drug-eluting Intraluminal Devices, Percutaneous Approach (ICD-10-PCS; 2017-01-02)
PROC: 02PA3RZ Removal of Short-term External Heart Assist System from Heart, Percutaneous Approach (ICD-10-PCS; 2017-01-02)
PROC: B2111ZZ Fluoroscopy of Multiple Coronary Arteries using Low Osmolar Contrast (ICD-10-PCS; 2017-01-02)
PROC: B41F1ZZ Fluoroscopy of Right Lower Extremity Arteries using Low Osmolar Contrast (ICD-10-PCS; 2017-01-02)
PROC: 02HA3RZ Insertion of Short-term External Heart Assist System into Heart, Percutaneous Approach (ICD-10-PCS; principal; 2017-01-02 12:30)
DX: I21.4 Non-ST elevation (NSTEMI) myocardial infarction (principal); E11.22 Type 2 diabetes mellitus with diabetic chronic kidney disease; Z68.41 Body mass index [BMI] 40.0-44.9, adult; I25.2 Old myocardial infarction; I25.10 Atherosclerotic heart disease of native coronary artery without angina pectoris; I12.9 Hypertensive chronic kidney disease with stage 1 through stage 4 chronic kidney disease, or unspecified chronic kidney disease; N18.9 Chronic kidney disease, unspecified; I37.1 Nonrheumatic pulmonary valve insufficiency; E78.5 Hyperlipidemia, unspecified; K59.00 Constipation, unspecified; E66.9 Obesity, unspecified; Z82.49 Family history of ischemic heart disease and other diseases of the circulatory system; Z91.14 Patient's other noncompliance with medication regimen
CPT/HCPCS: 33990; 36430; 71010; 76937; 80048; 80061; 80076; 80307; 81001; 82550; 82552; 82948; 83036; 83690; 83735; 83880; 84443; 84484; 85002; 85025; 85027; 85610; 85730; 86850; 86900; 86901; 86920; 87641; 92928; 92929; 93005; 93306; 93454; 93880; 93970; 93998; 94010; 96374; C1725; C1760; C1769; C1874; C1887; C1893; G0269; J0360; J0690; J1644; J2250; J2270; J2405; J2720; J2930; J3010; J3246; J3370; P9016; Q9967